=== PATIENT | female | born 2005 | race Caucasian/White ===

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

== ENCOUNTER 2024-09-28 13:43 | Emergency (ER) | payer BC, SELFPAY ==
--- NOTE | 2024-09-28 13:46 | ED_ITS ---
HPI - Ear Problem General Chief complaint: Ear Stated complaint: Ear Pain Source: patient and RN notes reviewed Mode of arrival: ambulatory Limitations: no limitations History of Present Illness HPI Narrative: Patient is a 19 year old female who presents to the [facility] with complaints of right ear pain. She states that she has had intermittent pain to the right ear for over the past month. She states that she now has muffled hearing out of the right ear. Reports prior TM perforation when she was younger requiring surgery in the right ear. States that she has noted clear drainage from the right ear. Denies recent fevers. Related Data Home Medications ?Medication ?Instructions ?Recorded ?Confirmed ?Last Taken ?Type spironolactone 50 mg tablet 50 mg PO TID 06/20/21 09/28/24 Unknown History vedolizumab 300 mg intravenous 300 mg IV ONCE 10/05/21 09/28/24 Unknown History solution (Entyvio) linaclotide 72 mcg capsule 72 mcg PO DAILY 04/09/23 09/28/24 Unknown History (Linzess) Allergies Allergy/AdvReac Type Severity Reaction Status Date / Time amoxicillin Allergy Intermediate Hives / Verified 09/28/24 13:56 Red Face adhesive tape AdvReac Intermediate BLISTERS Verified 09/28/24 13:56 Review of Systems Review of Systems: CONSTITUTIONAL: Denies fever, chills, or sweats. EYES: Denies visual changes, redness, or discharge. ENT: Reports otalgia but denies sore throat CARDIOVASCULAR: Denies chest pain, palpitations, or edema. RESPIRATORY: Denies cough or dyspnea. GASTROINTESTINAL: Denies abdominal pain, nausea, vomiting, or diarrhea. GENITOURINARY: Denies dysuria or hematuria. SKIN: Denies rash or itching. MUSCULOSKELETAL: Denies back pain, joint pain, or myalgia. NEUROLOGIC: Denies headache, numbness, or weakness. Pertinent positives per HPI. [facility] Past Medical History Medical History Ulcerative (chronic) enterocolitis IBS (irritable bowel syndrome) Asthma Ear infection Surgical History Surgical History History of removal of ovarian cyst History of tympanoplasty History of placement of ear tubes Family History Family History Other Heart disease Hypertension Social History Social History Smoking status: Never smoker Alcohol intake: never Substance use: never Do You Feel Safe in your Home?: Yes Lack of Transportation: No Lack of Food: Never True Current Housing: I Have Housing Concerned About Future Housing: No Difficulty Paying Gas/Electric Bills: No Difficulty Paying for Meds: No Currently Unemployed: No Education: High School Diploma/GED Difficulty w/ Childcare or Family Care: No Living arrangements: with family Occupation/Education: student Gender identity (if verbalized by the patient): Female Comments At the time of my signature, I reviewed and agree with the nursing past medical, surgical, social, and family history. There is no relevant family history pertinent to the patient complaint. Exam Narrative: GENERAL: This is a well-nourished, well-developed patient, in no apparent distress. HEAD: normocephalic, atraumatic. EYES: Sclera clear/white. Vision is grossly intact. EARS: External ears normal. Left TM normal without perforation. Cerumen impaction in the right. Decreased hearing on the right. NOSE: External nose normal with no obvious nasal discharge, nares without redness, no rhinorrhea. THROAT: Mucous membranes moist, posterior pharynx clear. NECK: Neck supple, non-tender without lymphadenopathy, masses or thyromegaly. CARDIOVASCULAR: Regular rate and rhythm without murmurs, gallops, or rubs. RESPIRATORY: Clear to auscultation. Breath sounds equal bilaterally. No wheezes, rales, or rhonchi. GASTROINTESTINAL: Abdomen soft, non-tender, nondistended. Bowel sounds are active. No hepato-splenomegaly, or palpable masses. No guarding. SKIN: warm, intact with no suspicious lesions or rash, good texture and turgor. NEURO: awake, alert, and oriented to person, place and time. There were no obvious focal neurologic abnormalities. Course Course Level of Care: Express Care Visit Vital Signs Vital signs: Vital Signs Temperature 98.5 F 09/28/24 13:50 Pulse Rate 70 09/28/24 13:50 Respiratory Rate 16 09/28/24 13:50 Blood Pressure 122/66 09/28/24 13:50 Pulse Oximetry 100 09/28/24 13:50 Oxygen Delivery Room Air 09/28/24 13:50 Temperature 98.5 F 09/28/24 13:50 Pulse Rate 70 09/28/24 13:50 Respiratory Rate 16 09/28/24 13:50 Blood Pressure 122/66 09/28/24 13:50 Pulse Oximetry 100 09/28/24 13:50 Oxygen Delivery Room Air 09/28/24 13:50 Reviewed Procedures Ear Wax Removal Right Ear: Ear Wax Removal Date: 09/28/24 Ear Wax Removal Time: 14:05 Results: Re-examined: cerumen removed completely TM Examination: TM(s) perforation Ear Canal Exam: atraumatic Patient Tolerated Procedure: well Complications: pain Technique: ear canal irrigated Medical Decision Making MDM Narrative Medical decision making narrative: Cerumen impaction on the right. Ear irrigated. Cerumen removed. Perforated TM noted upon exam. Patient will be treated and advised to follow-up with ENT. Take antibiotics as directed. May given ibuprofen and/or Tylenol as needed for pain and/or fever. Follow-up with ENT as soon as possible. Differential Diagnosis Differential Diagnosis: otitis media, otitis externa, cerumen impaction Vital Signs Vital Signs: Vital Signs Temperature 98.5 F 09/28/24 13:50 Pulse Rate 70 09/28/24 13:50 Respiratory Rate 16 09/28/24 13:50 Blood Pressure 122/66 09/28/24 13:50 Pulse Oximetry 100 09/28/24 13:50 Oxygen Delivery Room Air 09/28/24 13:50 Temperature 98.5 F 09/28/24 13:50 Pulse Rate 70 09/28/24 13:50 Respiratory Rate 16 09/28/24 13:50 Blood Pressure 122/66 09/28/24 13:50 Pulse Oximetry 100 09/28/24 13:50 Oxygen Delivery Room Air 09/28/24 13:50 Critical Care Time Critical Care Time Critical Care Time: No Discharge Plan Discharge Clinical Impression: Acute otitis media of right ear with perforation, Impacted cerumen of right ear Patient Disposition: Home Condition: Stable Instructions: Antibiotic Form, Ruptured Eardrum (ED), Ear Infection (ED) Additional Instructions: Take antibiotics as directed. May given ibuprofen and/or Tylenol as needed for pain and/or fever. Follow-up with ENT as soon as possible. Patient Language: Croatian Prescriptions: New cefdinir 300 mg capsule 300 mg PO Q12H 10 Days Qty: 20 0RF No Action spironolactone 50 mg tablet 50 mg PO TID Entyvio 300 mg recon soln 300 mg IV ONCE Rx Instructions: administer over 30 mins Linzess 72 mcg capsule 72 mcg PO DAILY L norgest/e.estradiol-e.estrad 0.1 mg-20 mcg (84)/10 mcg (7) tablets,dose pack,3 month 1 tablet PO DAILY Qty: 182 4RF Follow-up/Referrals: Yefri Ernandez M.D. [Physician] - PHYSICIAN,STREET CAR INSPECTOR [Primary Care Provider] - Time of Disposition: 14:10
[2024-09-28 13:50] VITALS: BP 122/66; PULSE 70; RESP 16; TEMP 36.9; O2SAT 100
[2024-09-28] MEDS: HYDROGEN PEROXIDE 3% SOLN(*SP) 473 ML BOTTLE 30 ML IRRIGATION (14:14)
== END 2024-09-28 14:16 | disposition home or self-care (01) ==
PROVIDERS: Emergency Provider Nurse Practitioner
DX: H66.91 Otitis media, unspecified, right ear (principal); H72.91 Unspecified perforation of tympanic membrane, right ear; H61.21 Impacted cerumen, right ear; J45.909 Unspecified asthma, uncomplicated
CPT/HCPCS: 69209; 99213; G0463

== ENCOUNTER 2024-10-14 07:56 | Outpatient (CLI) | payer BC, SELFPAY ==
--- OUTSIDE RECORDS SUMMARY | 2024-10-14 07:58 | XMS_ITS | Encounter Summary ---
Author Organization [facility] Address [address] [place] [address] Phone Care Team Providers Care Staff Developer Name Role Phone Jason Bliss MD Primary Care Provider [phone] Denver Beatty MD Primary Care Provider [phone] Reason for Visit * Reason Onset Date Comments QUESTION 06/04/2018 MOM CALLING WITH QUESTION ABOUT CARDIO VISIT, NOT BEE Encounter Details Date Type Department Care Team (Late st Contact Info) Description 06/04/2018 Telephone [facility] Pediatric Allergy and Pulmonology [facility] [address] [place] [address] [place] [address] Odette Bello QUESTION (MOM CALLING WITH QUESTION ABOUT CARDIO VISIT, NOT BEE) Social History Tobacco Use Types Packs/Day Years Used Date Smoking Tobacco: Never Smokeless Tobacco: Never Comments Unknown Sex and Gender Information Value Date Recorded Sex Assigned at Not on file Legal Sex 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
--- OUTSIDE RECORDS SUMMARY | 2024-10-14 07:58 | XMS_ITS | Clinical Summary ---
Author Organization [facility] [employer] Address [address] [place] [address] Care Team Providers Care Commercial Banker Name Role Phone Unavailable Primary Care Provider Unavailabl e Source Comments [facility] [employer],non-owned Affiliates and Associated Physician Practices is amultiple site organization consisting of ambulatory clinics and hospital sitesin [place], [place], [place] and [place]. This disclosure is being madepursuant to the Care Everywhere program and may not contain all information available regarding this patient. Last updated 17.[facility] [employer] Allergies Active Allergy Reactions Criticality Noted Date Comments Amoxicillin Urticaria 05/06/2014 Medications * Be aware that medications may not be up to date on this document. Alwaysverify current medications with the patient. loratadine (CLARITIN) 10 MG tablet Take 10 mg by mouth once daily. Active montelukast (SINGULAIR) 10 MG tablet Take 10 mg by mouth at bedtime. Active ibuprofen (MOTRIN) 400 MG tablet Take 1 Tab by mouth every 8 hours as needed for Pain. 50 Tab 0 05/06/2014 Active ondansetron, disintegrating, (ZOFRAN ODT) 4 MG tablet Take 1 Tab by mouth every 6 hours as needed for Nausea/Vomiti ng. 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 Gender Identity Not on file Sexual Orientation Not on file Last Filed Vital Signs Vital Sign Reading Time Taken Comments Blood Pressure 114/65 05/06/2014 3:14 PM CONCRETE POLISHER Pulse 68 05/06/2014 3:14 PM CONCRETE POLISHER Temperature 36.2 C (97.2 F) 05/06/2014 3:14 PM CONCRETE POLISHER Respiratory Rate 20 05/06/2014 3:14 PM CONCRETE POLISHER Oxygen Saturation 100% 05/06/2014 3:14 PM CONCRETE POLISHER Inhaled Oxygen Concentration - - Weight 31.5 kg (69 lb 7.1 oz) 05/06/2014 3:14 PM CONCRETE POLISHER Height - - Body Mass Index - - Plan of Treatment Health Maintenance Due Date Last Done Comments HIV SCREENING 2018 HPV VACCINE (1 - 3-dose series) 2018 CHLAMYDIA/GONORRHEA SCREENING 2019 MENINGOCOCCAL (Group B) VACC INE SHARED DECISION-MAKING (1 of 2 - Standard) 2019 HEPATITIS C SCREENING 04/22/2021 DTAP/TDAP/TD VACCINES (1 - Tdap) 2022 HEPATITIS B VACCINE (1 of 3 - 19+ 3-dose series) 2022 COVID-19 VACCINE (1 - 2023-2 5 season) 2023 DEPRESSION SCREENING 04/01/2024 INFLUENZA VACCINE (#1) 2024 ZOSTER VACCINE (1 of 2) 2053 HIB VACCINE Aged Out No longer eligi ble based on patient's age to complete this topic MENINGOCOCCAL GROUPS A/C/Y/W VACCINE Aged Out No longer eligible b ased on patient's age to complete this topic PNEUMOCOCCAL VACCINE Aged Out No long er eligible based on patient's age to complete this topic Insurance [facility]
--- OUTSIDE RECORDS SUMMARY | 2024-10-14 07:58 | XMS_ITS | Clinical Summary ---
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 Gender Identity Not on file Sexual Orientation Not on file Plan of Treatment Health Maintenance Due Date Last Done Comments Hepatitis C Virus (HCV) Screening 2003 Meningococcal B Immunization (1 of 2 - Standard) 2019 SARS-COV-2 Immunization ( season) 2023 04/05/2021, 09/12/2020, 08/20/2020 Influenza Immunization (#1) 2024 04/20/2020, 1 Respiratory Syncytial Virus (RSV) Immunization (Adult) (1 - 1-dose 75+ series) 2078 Hepatitis B Immunization Completed 004, 2003, 2003, Additional history exists Pneumococcal Immunization Combined Aged Out 07/28/2004, 01/27/2004, 2003, Additional history exists No longer eligible based on patient's age to complete this topic Measles Mumps Rubella (MMR) Immunization Discontinued 09/21/2008, 07/28/2004 Polio (IPV) Immunization Discontinued 009, 2003, 2003, Additional history exists Varicella Immunization Discontinued 09/21/2008, 2004 DTaP/Tdap/Td Immunization Discontinued 2014, 09/21/2008, 10/27/2004, Additional history exists TdaP Immunization Completed 09/21/2014 Hepatitis A Immunization Discontinued 09/26/2015, 08/31 Human Papillomavirus (HPV) Immunization Completed 09/26/2015, 09/21/2014 Meningococcal Immunization (ACWY) Completed 01/08/2021, 04/20/2020, 09/21/2014 Rotavirus Immunization Aged Out No lo nger eligible based on patient's age to complete this topic
--- OUTSIDE RECORDS SUMMARY | 2024-10-14 07:58 | XMS_ITS | CCD ---
Author Name Interface, [id number] fr[employer] Address [address] [place] [address] [employer] Address [address] [place] [address] Allergies and Adverse Reactions Medication/Group Name Reaction Severity Date adhesive 01/30/2024 amoxicillin 01/30/2024 Care Plan Date Type Value 01/30/2024 APPOINTMENT Entyvio (Acuity 2) 12/05/2023 APPOINTMENT Entyvio (Acuity 2) 12/05/2023 LABORDER CBC 12/05/2023 LABORDER ESR 12/05/2023 LABORDER CMP 12/05/2023 LABORDER CMP 12/05/2023 LABORDER CBC 01/30/2024 LABORDER GGT 01/30/2024 LABORDER Iron, TIBC, Ferr itin panel 01/30/2024 LABORDER Vitamin D, 25-hy droxy 01/30/2024 LABORDER C-reactive prote in (CRP), cardiac 01/30/2024 LABORDER CMP 01/30/2024 LABORDER CMP 01/30/2024 LABORDER CBC 01/30/2024 LABORDER CBC 01/30/2024 LABORDER HELD: ESR 03/12/2024 LABORDER CMP 03/12/2024 LABORDER CMP 03/12/2024 LABORDER CBC 03/12/2024 LABORDER CBC 03/12/2024 LABORDER ESR Reason for Visit Entyvio (Acuity 2) Encounters Date Name 01/30/2024 Inflammatory bowel d isease (disorder) Diagnostic Results Date Type Test Units Lower Limit Upper Limit Result Flag Comments Status Ordered By Specimen Source Lab Address 01/29 Clini georgina PDF Repor t [id number] 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 FINAL [facility], [address] [address] [place] [address] Terese- andi Rankin Laz VILLATORO 01/29 C-jane ctive prote in panel C-jane ctive prote in, quant , mg/L mg/L <3.0 Chelsea l FINAL [facility], [address] [address] [place] [address] Terese- andi Rankin Laz VILLATORO 01/29 Vitam in D, 25-OH , D2 ng/mL <1.0 This test was developed and its analytica l performan cecharact eristics have been determine d by [employer]. It has not been cleared or approved by theA. This assay has been validated pursuant to the [facility] and is used for clinical purposes. Your request to have a duplicate copy faxed has been acknowled ged. Queued to: [phone] [employer] [employer], [facility], [address] [place] [address] Mushtaq Flores i PhD, [facility] 01/29 Vitam in D, 25-OH , D3 ng/mL 38.0 This test was developed and its analytica l performan cecharact eristics have been determine d by [employer]. It has not been cleared or approved by theA. This assay has been validated pursuant to the [facility] and is used for clinical purposes. [employer] [address] [facility], [address] [place] [address] Mushtaq Flores i PhD, [facility] 01/29 Vitam in D, 25-hy droxy ng/mL 38.0 This test was developed and its analytica l performan cecharact eristics have been determine d by [employer]. It has not been cleared or approved by the U.S. Food andDrug Administr ation. This assay has been validated pursuantt o the CLIA regulatio ns and is used for clinical purposes. Vitamin D, 25-Hydrox y reports concentra tions of two commonfor ms, 25-OHD2 and 25-OHD3. 25-OHD3 indicates bothendog enous productio n and supplemen tation. 25-OHD2 is anindicat or of exogenous sources, such as diet orsupplem entation. Therapy is based on measureme nt of Btazg25-M HD, with levels <20 ng/mL indicativ e of Vitamin Ddeficien cy, while levels between 20 ng/mL and 30 ng/mLsugg est insuffici ency. Optimal levels are >=30 ng/mL.Vit venegas D, 25-Hydrox y reports concentra tions of twocommon forms, 25-OHD2 and 25-OHD3. 25-OHD3 indicates both endogenou s productio n and supplemen tation.25 -OHD2 is an indicator of exogenous sources, suchas diet or supplemen tation. Therapy is based onmeasure ment of Total 25-OHD, with levels <20 ng/mLindi cative of Vitamin D deficienc y, while levelsbet ween 20 ng/mL and 30 ng/mL suggest insuffici ency.Opti mal levels are >or = 30 ng/mL. FINAL Kelsi th[place] [facility] [employer] [employer] [address] [place] [address], [address] [place] [address] Mushtaq Flores i PhD, DAB 01/29 GGT panel GGT U/L 3.0 40.0 7 Chelsea l FINAL [facility] [facility], [facility] [place] [address] Terese-Lie u T Laz VILLATORO 01/29 CMP ALT/S GPT U/L 6.0 29.0 12 Chelsea l [facility]AL [facility] [facility], [facility] [address] Terese-Lie u T Laz VILLATORO 01/29 CMP A/G ratio (calc) 1.0 2.5 2.1 Chelsea l FINAL [facility], Brandon [facility] [place] 52 Terese-Lie u T Vo 01/29 CMP Gluco se mg/dL 65.0 139.0 78 Chelsea l Non-fasti ng reference interval FINAL [facility] [facility], [facility] [place] 52 Terese-Lie u T Vo 01/29 CMP Globu abrahan g/dL(c alc) 1.9 3.7 2.1 Chelsea l FINAL [facility] [facility], [facility] [place] 52 Terese-Lie u T Vo 01/29 CMP Total prote in g/dL 6.1 8.1 6.5 Chelsea l FINAL [facility] [facility], [facility] [place] 52 Terese-Lie u T Vo 01/29 CMP AST/S GOT U/L 10.0 30.0 16 Chelsea l FINAL [facility] [facility], [facility] [place] 52 Terese-Lie u T Vo 01/29 CMP Bilir ubin, total mg/dL 0.2 1.2 0.4 Chelsea l FINAL [facility] [facility], [facility] [place] 52 Terese-Lie u T Vo 01/29 CMP Sodiu m mmol/L 135.0 146.0 138 Chelsea l FINAL [facility] [facility], [facility] [place] 52 Terese-Lie u T Vo 01/29 CMP Alkal ine phosp hatas e U/L 31.0 125.0 37 Chelsea l FINAL [facility] [facility], [facility] [place] 52 Terese-Lie u T Vo 01/29 CMP Calci um mg/dL 8.6 10.2 9.4 Chelsea l FINAL [facility] [facility], [facility] [place] 52 Terese-Lie u T Vo 01/29 CMP CO2 mmol/L 20.0 32.0 25 Chelsea l FINAL [facility] [facility], [facility] [place] 52 Terese-Lie u T Vo 01/29 CMP EGFR mL/min /1.73m 2 90 Chelsea l FINAL [facility] [facility], [facility] [place] 52 Terese-Lie u T Vo 01/29 CMP Chlor marcia mmol/L 98.0 110.0 104 Chelsea l FINAL [facility] [facility], [facility] [place] 52 Terese-Lie u T Vo 01/29 CMP BUN mg/dL 7.0 25.0 12 Chelsea l [facility]AL [facility] [facility], [facility] [place] 52 Terese-Lie u T Vo 01/29 CMP Creat inine mg/dL 0.5 0.96 0.93 Chelsea l FINAL [facility] [facility], [facility] [place] 52 Terese-Lie u T Vo 01/29 CMP Album in g/dL 3.6 5.1 4.4 Chelsea l FINAL [facility] [facility], [facility] [place] 52 Terese-Lie u T Vo 01/29 CMP BUN/C reati nine ratio (calc) 6.0 22.0 SEE NOTE: Not Reported: BUN and Creatinin e are within reference range. FINAL [facility] [facility], [facility] [place] 52 Terese-Lie u T Vo 01/29 CMP Potas sium mmol/L 3.5 5.3 4.2 Chelsea l FINAL [facility] [facility], [facility] [place] 52 Terese-Lie u T Vo 01/29 Iron, TIBC, Irvin tin panel Irvin tin ng/mL 16.0 154.0 10 Low FINAL [facility] [facility], [facility] 52 - u T Vo 01/29 Iron, TIBC, Irvin tin panel Iron, % satur ation %(calc ) 16.0 45.0 34 Chelsea l FINAL [facility] [facility], [facility] 52 u T Laz VILLATORO 01/29 Iron, TIBC, Irvin tin panel Iron mcg/dL 40.0 190.0 119 Chelsea l FINAL [facility] [facility], [facility] 52 u T Vo 01/29 Iron, TIBC, Irvin tin panel TIBC mcg/dL (calc) 250.0 450.0 345 Chelsea l FINAL [facility] [facility], [facility] 52 u T Vo 01/29 CBC w/ auto diff MCV fL 80.0 100.0 93.9 Chelsea l FINAL [facility], [facility] 52 u T Vo 01/29 CBC w/ auto diff Neutr ophil band, Ab, cells /uL cells/ uL 0.0 750.0 DNR Chelsea l FINAL [facility] [facility], [facility] 52 u T Laz VILLATORO 01/29 CBC w/ auto diff MO % % 6.4 Chelsea l FINAL [facility] [facility], [facility] 52 u T Vo 01/29 CBC w/ auto diff Metam yeloc yte % % DNR Chelsea l [facility]AL [facility] [facility], [facility] 52 - u T Vo 01/29 CBC w/ auto diff Metam yeloc ytes, absol [place]or[place] cells/ uL DNR Chelsea l FINAL [facility], [address] [facility] [place] [address] Terese-Lie u T Vo 01/29 CBC w/ auto diff ELIANE #, cells /uL cells/ uL 1500.0 7800.0 1899 Chelsea l FINAL [facility] [facility], [facility] [place] [address] Terese-Lie u T Vo 01/29 CBC w/ auto diff EO % % 2.4 Chelsea l FINAL [facility] [facility], [facility] [address] Terese-Lie u T Vo 01/29 CBC w/ auto diff RBC Millio n/uL 3.8 5.1 4.29 Chelsea l FINAL [facility] [facility], [facility] [place] [address] Terese-Lie u T Vo 01/29 CBC w/ auto diff MPV fL 7.5 12.5 9.7 Chelsea l FINAL [facility], [facility] [address] Terese-Lie u T Vo 01/29 CBC w/ auto diff BA % % 0.7 Chelsea l FINAL [facility] [facility], [facility] [address] Terese-Lie u T Vo 01/29 CBC w/ auto diff Promy elocy te % % DNR Chelsea l FINAL [facility] [facility], [place] [phone] 52 Terese-Lie u T Vo 01/29 CBC w/ auto diff BA #, cells /uL cells/ uL 0.0 200.0 32 Chelsea l FINAL [facility] [facility], [facility] [address] Terese-Lie u T Vo 01/29 CBC w/ auto diff Band, % % DNR Chelsea l [facility]AL [facility] [facility], [place] [phone] 52 Terese-Lie u T Vo 01/29 CBC w/ auto diff HGB g/dL 11.7 15.5 12.8 Chelsea l FINAL [facility] [facility], [place] 52 01/29 CBC w/ auto diff Myelo cyte % % DNR Chelsea l [facility]AL [facility] [facility], [facility] 01/29 CBC w/ auto diff NRBC, absol [place], cells /uL cells/ uL DNR Chelsea l FINAL [facility] [facility], [facility] [place] 52 01/29 CBC w/ auto diff MCHC g/dL 32.0 36.0 31.8 Low For adults, a slight decrease in the calculate d MCHCvalue (in the range of 30 to 32 g/dL) is most likelynot clinicall y significa nt; however, it should beinterpr eted with caution in correlati on with otherred cell parameter s and the patient's clinicalc ondition. FINAL [facility] [facility], [facility] 52 01/29 CBC w/ auto diff HCT % 35.0 45.0 40.3 Chelsea l FINAL [facility] [facility], [facility] [place] 52 01/29 CBC w/ auto diff React john lymph ocyte , % % 0.0 10.0 DNR Chelsea l FINAL [facility] [facility], [facility] [place] 52 01/29 CBC w/ auto diff Blast s, absol [place] cells/ uL DNR Chelsea l FINAL [facility] [facility], [facility] [place] 52 Laz VILLATORO 01/29 CBC w/ auto diff Myelo cytes , absol noor[place] cells/ uL DNR Chelsea l [facility]AL [facility], [address] [facility] [place] [address] Laz VILLATORO 01/29 CBC w/ auto diff Promy elocy te, absol [place], cells /uL cells/ uL DNR Chelsea l [facility]AL [facility], [address] [facility] 52 Laz VILLATORO 01/29 CBC w/ auto diff WBC Thousa nd/uL 3.8 10.8 4.5 Chelsea l FINAL [facility] [facility], [facility] 52 Laz VILLATORO 01/29 CBC w/ auto diff PLT Thousa nd/uL 140.0 400.0 297 Chelsea l [facility]AL [facility], [address] [facility] 52 Laz VILLATORO 01/29 CBC w/ auto diff CBC Comme nts DNR Chelsea l FINAL [facility] [facility], [facility] [address] Laz VILLATORO 01/29 CBC w/ auto diff LY #, cells /uL cells/ uL 850.0 3900.0 2174 Chelsea l FINAL [facility] [facility], [facility] [address] Laz VILLATORO 01/29 CBC w/ auto diff Blast s % % DNR Chelsea l FINAL [facility] [facility], [facility] [address] Laz VILLATORO 01/29 CBC w/ auto diff RDW % 11.0 15.0 12.1 Chelsea l FINAL [facility], [address] [facility] [address] 52 Laz VILLATORO 01/29 CBC w/ auto diff MO #, cells /uL cells/ uL 200.0 950.0 288 Chelsea l FINAL [facility], [address] [place] [phone] [facility] Laz VILLATORO 01/29 CBC w/ auto diff EO #, cells /uL cells/ uL 15.0 500.0 108 Chelsea l FINAL [facility], [address] [place] [phone] [facility] Laz VILLATORO 01/29 CBC w/ auto diff LY % % 48.3 Chelsea l [facility]AL [facility], [address] [facility] [address] [facility] Laz VILLATORO 01/29 CBC w/ auto diff MCH pg 27.0 33.0 29.8 Chelsea l [facility]AL [facility], [address] [facility] [address] [facility] Laz VILLATORO 01/29 CBC w/ auto diff NRBC % /100WB C DNR Chelsea l [facility]AL [facility], [address] [facility] [address] [facility] Laz VILLATORO 01/29 CBC w/ auto diff Eliane % % 42.2 Chelsea l [facility]AL [facility], [address] [place] [phone] [facility] Laz VILLATORO Medications Administered Date Name Route Dose Frequency Instructions Start Date End Date Status 2023 vedolizumab 300 MG Injection [Entyvio] intravenously 300.0 mg every 8 weeks Administer over 30 mins. Reconstitute ENTYVIO vial containing lyophilized powder with 4.8 mL of Sterile Water for injection at room temperature (20 to 25 C [68 to 77 F]), using a syringe with a 21- to 25- gauge needle. Reconstitute ENTYVIO lyophilized powder with Sterile Water for Injection and dilute in 250 mL of sterile 0.9% Sodium Chloride Injection or sterile Lactated Ringer s Injection prior to administratio n. 01/29 inactive 2023 acetaminophen 500 MG Oral Tablet [Tylenol] orally 1.0 tablet once 01/29 inactive 2023 cetirizine hydrochloride 10 MG Oral Tablet [Zyrtec] orally 1.0 tablet daily 01/29 inactive 2023 vedolizumab 300 MG Injection [Entyvio] intravenously 300.0 mg every 8 weeks Administer over 30 mins. Reconstitute ENTYVIO vial containing lyophilized powder with 4.8 mL of Sterile Water for injection at room temperature (20 to 25 C [68 to 77 F]), using a syringe with a 21- to 25- gauge needle. Reconstitute ENTYVIO lyophilized powder with Sterile Water for Injection and dilute in 250 mL of sterile 0.9% Sodium Chloride Injection or sterile Lactated Ringer s Injection prior to administratio n. 12/04 inactive 2023 cetirizine hydrochloride 10 MG Oral Tablet [Zyrtec] orally 1.0 tablet daily 12/04 inactive 2023 acetaminophen 500 MG Oral Tablet [Tylenol] orally 1.0 tablet once 12/04 inactive Medications Date Name Route Dose Frequency Instructions Start Date End Date Status Budesonide Oral ER Cap po daily 1.0 capsule, delayed, extend.r elease stopped Spironolactone Oral po 1.0 tablet daily active L norgest/E. Estradiol-E. Estrad Oral 0.15 mg-30 mcg (84)/10 mcg (7) po 1.0 tablets, dose pack,3 month daily active Budesonide Rectal rectal 1.0 mg/actua tion BID stopped Albuterol HFA Inhaler 90 mcg/actuation inhaled 2.0 HFA aerosol inhaler PRN active Linaclotide Oral po 1.0 capsule daily active 03/12 Oxygen inhaled 2.0 L Use as Directed Titrate to keep SPO2 >92% 2023 active 03/12 acetaminophen 325 MG Oral Capsule orally 650.0 mg once 2023 active 03/12 diphenhydramine hydrochloride 0.5 MG/ML Injectable Solution intravenously 50.0 mg once 2023 active 03/12 cetirizine hydrochloride 10 MG Oral Tablet [Zyrtec] orally 1.0 tablet daily 2023 active 03/12 methylprednisol one 2000 MG Injection intravenously 125.0 mg once 2023 active 03/12 acetaminophen 500 MG Oral Tablet [Tylenol] orally 1.0 tablet once 2023 active 03/12 epinephrine hydrochloride intramuscularly 0.3 mg once 2023 active 03/12 vedolizumab 300 MG Injection [Entyvio] intravenously 300.0 mg every 8 weeks Administer over 30 mins. Reconstitute ENTYVIO vial containing lyophilized powder with 4.8 mL of Sterile Water for injection at room temperature (20 to 25 C [68 to 77 F]), using a syringe with a 21- to 25- gauge needle. Reconstitute ENTYVIO lyophilized powder with Sterile Water for Injection and dilute in 250 mL of sterile 0.9% Sodium Chloride Injection or sterile Lactated Ringer s Injection prior to administratio n. 2023 active 03/12 hydrocortisone 100 MG Injection intravenously 100.0 mg once 2023 active 03/12 ondansetron hydrochloride intravenously 4.0 mg once 2023 active 01/29 diphenhydramine hydrochloride 0.5 MG/ML Injectable Solution intravenously 50.0 mg once 2023 active 01/29 hydrocortisone 100 MG Injection intravenously 100.0 mg once 2023 active 01/29 methylprednisol one 2000 MG Injection intravenously 125.0 mg once 2023 active 01/29 epinephrine hydrochloride intramuscularly 0.3 mg once 2023 active 01/29 acetaminophen 325 MG Oral Capsule orally 650.0 mg once 2023 active 01/29 ondansetron hydrochloride intravenously 4.0 mg once 2023 active 01/29 Oxygen inhaled 2.0 L Use as Directed Titrate to keep SPO2 >92% 2023 active 12/04 hydrocortisone 100 MG Injection intravenously 100.0 mg once 2023 active 12/04 diphenhydramine hydrochloride 0.5 MG/ML Injectable Solution intravenously 50.0 mg once 2023 active 12/04 acetaminophen 325 MG Oral Capsule orally 650.0 mg once 2023 active 12/04 Oxygen inhaled 2.0 L Use as Directed Titrate to keep SPO2 >92% 2023 active 12/04 epinephrine hydrochloride intramuscularly 0.3 mg once 2023 active 12/04 methylprednisol one 2000 MG Injection intravenously 125.0 mg once 2023 active 12/04 ondansetron hydrochloride intravenously 4.0 mg once 2023 active Problems Diagnosis Status Date of Diagnosis Resolution Date Inflammatory bowel disease (disorder) Active Social History Date Name Value Sex Female Vital Signs Date Type Value 12/05/2023 Intravascular Systolic 116 12/05/2023 Intravascular Diastolic 73 12/05/2023 Oxygen Saturation 97.00 12/05/2023 Respiratory Rate 16.00 12/05/2023 Heart Beat 79.00 12/05/2023 Body Temperature 98.80 12/05/2023 Pain Scale 0.00 12/05/2023 Weight 55.80 01/30/2024 Intravascular Systolic 102 01/30/2024 Intravascular Diastolic 58 01/30/2024 Oxygen Saturation 99.00 01/30/2024 Respiratory Rate 16.00 01/30/2024 Heart Beat 97.00 01/30/2024 Body Temperature 98.70 01/30/2024 Pain Scale 0.00 01/30/2024 Weight 56.80
--- OUTSIDE RECORDS SUMMARY | 2024-10-14 07:58 | XMS_ITS | CCD ---
Author Name Interface, [id number] Address [address] [employer] Address [address] [place] [address] Allergies and Adverse Reactions Care Plan Reason for Visit Encounters Diagnostic Results Medications Administered Medications Problems Social History Vital Signs
--- OUTSIDE RECORDS SUMMARY | 2024-10-14 07:58 | XMS_ITS | Encounter Summary ---
Author Organization [facility] Healthcare Address [address] [place] [address] Care Team Providers Care Social Services Technician Name Role Phone Jason Bliss MD Primary Care Provider [phone] Denver Beatty MD Primary Care Provider [phone] Encounter Details Date Type Department Care Team (Late st Contact Info) Description 07/21/2021 Telephone [facility] MRI Department [address] [place] [address] Bessie Cain RT Social History Tobacco Use Types Packs/Day Years Used Date Smoking Tobacco: Never Smokeless Tobacco: Never Comments Unknown Sex and Gender Information Value Date Recorded Sex Assigned at Not on file 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
--- OUTSIDE RECORDS SUMMARY | 2024-10-14 07:58 | XMS_ITS | Encounter Summary ---
Author Organization [facility] Address [address] [place] [address] Phone Care Team Providers Care Cryptologist Name Role Phone Denver Beatty MD Primary Care Provider [phone] Encounter Details Date Type Department Care Team (Late st Contact Info) Description 08/18/2024 Results Follow-Up [facility] [address] [facility] [address] [place] [address] [place] [address] Hodan Richardson RN Thyroid Function [place], Vitamin D 25 hydroxy, Folate, Additional followed-up results: 8 Social History Tobacco Use Types Packs/Day Years Used Date Smoking Tobacco: Never Smokeless Tobacco: Never AUDIT-C Answer Date Recorded Q1: How often do you have a drink containing alc ohol? Monthly or less 08/13/2024 Q2: How many drinks containi ng alcohol do you have on a typical day when you are drinking? 1 or 2 08/13/2024 Q3: How often do you have si x or more drinks on one occasion? Never 08/13/2024 PHQ-2 Answer Date Recorded PHQ-2 Total Score (If total score is 3 or more points, staff should administer the PHQ-9) 0 10/08/2023 PHQ-9 Answer Date Recorded PHQ-9 Total Score 0 10/08/2023 Personal Safety Answer Date Recorded Have you ever been in or are you currently in a harmful physical or emotional relationship or is someone making you feel afraid or unsafe? 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
--- OUTSIDE RECORDS SUMMARY | 2024-10-14 07:58 | XMS_ITS | Encounter Summary ---
Author Organization [facility] Healthcare Address [address] [place] [address] Care Team Providers Care Data Collection Specialist Name Role Phone Jason Bliss MD Primary Care Provider [phone] Denver Beatty MD Primary Care Provider [phone] Encounter Details Date Type Department Care Team (Late st Contact Info) Description 07/21/2021 Telephone [facility] MRI Department [address] [place] [address] Bessie Cain RT Social History Tobacco Use Types Packs/Day Years Used Date Smoking Tobacco: Never Smokeless Tobacco: Never Comments Unknown Sex and Gender Information Value Date Recorded Sex Assigned at Not on file 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
--- OUTSIDE RECORDS SUMMARY | 2024-10-14 07:58 | XMS_ITS | Clinical Summary ---
Author Organization [facility] Address [address] [place] [address] Care Team Providers Care Irrigation Foreman Name Role Phone Denver Beatty MD Primary Care Provider Allergies Active Allergy Reactions Criticality Noted Date Comments Adhesive Blisters High 11/03/2020 Adhesive tape.Does well with paper tape Amoxicillin Hives Medium 12/18/2016 Gluten Other (See comments) 08/13/2024 Celiac disease Medications PROAIR HFA 90 mcg/actuation inhaler Inhale 2 puffs every 4 (four) hours as needed for wheezing or shortness of breath 1 8 Active EPINEPHrine 0.1 mg/0.1 mL auto-injector Inject 0.3 mg into the muscle as instructed as needed (anaphylaxis) 3 Active linaCLOtide (LINZESS) 145 mcg capsule Take 1 capsule (145 mcg total) by mouth daily 30 capsule 3 4 Active Additional Information Patient not taking.Reported on 08/13/2024 acetaminophen (Tylenol Extra Strength) 500 mg tablet Take 1 tablet (500 mg total) by mouth every 4 (four) hours as needed 4 Active cetirizine (ZyrTEC) 10 mg tablet Take 1 tablet (10 mg total) by mouth daily 4 Active vedolizumab 108 mg/0.68 mL pen injector Inject 108 mg under the skin every 14 (fourteen) days 1.36 mL 6 5 Active Active Problems Problem Noted Date Diagnosed Date Celiac disease/sprue 10/08/2023 Abdominal pain 08/22/2023 Assessment & Plan (08/23/2023 3:08 AM CDT): Karla is a 18yo F w a hx of inflammatory bowel disease who presents with severe abdominal pain since her coloscopy and endoscopy yesterday. Given her recent procedure, there is concern for perforation, though XR and CT in the emergency department were normal. Pain may be in the setting of an IBD plain, however, Karla notes that this pain is much different than her typical IBD pain and her stools have been normal. Pain may be post-procedural, however this extent of pain is not consistent with post-procedure discomfort. Should also consider ectopic (though urine was negative) or ovarian torsion. Torsion is less likely given that her pain is bilateral, however, she notes that this pain is worse than any other pain she has had before, it is worse on the left, and she has a history of ovarian cyst with excision in 2017, so it should be highly considered. CT abd pelvis did note cysts as well. - US pelvis w Doppler complete - mIVF - scheduled Tylenol q6hrs - benadryl PRN - Robaxin PRN - ok for x1 toradol per GI - serial abdominal exams - GI consulted, appreciate further recs Chronic constipation 04/26/2023 Irritable bowel syndrome 04/18/2023 Severe ulcerative colitis 08/30/2021 Duodenitis 08/30/2021 Inflammatory bowel disease 08/22/2021 Abdominal pain, lower 10/17/2020 Overview (10/17/2020): Added automatically from request for surgery [id number] Hematochezia 10/17/2020 Overview (10/17/2020): Added automatically from request for surgery [id number] Dyspnea on exertion 01/16/2019 Assessment & Plan (01/16/2019 11:29 AM CDT): The precise etiology of Karla's exercise symptoms remains unclear. Her testing has not been reflective of asthma, but she reports improvement of symptoms with albuterol. Her history today, along with some of the findings on her exercise test, are more indicative of vocal cord dysfunction. - Discussed diagnosis of VCD at length with Karla and Dad, including natural history and treatment. - Placed order for ST for VCD treatment. We are happy to send this order to the ST of family's choosing, if they want to be seen outside of our network. - Karla can continue to use albuterol with exercise for now, as she finds it helpful. Would recommend 4 puffs with spacer prior to exercise, and no more than an additional 4-6 puffs over the course of a game/practice. - We also recommended she try restarting the Singulair and taking it regularly to assess efficacy. Studies have indicated that it may be a more effective controller or preventative medication for EIB than inhaled steroids. Syncope associated with exercise 06/10/2018 Overview (06/10/2018): 1. Normal baseline ECG on 06/06/18 2. Normal baseline echocardiogram on 06/06/18 3. Normal exercise stress test on 06/10/18 4. Normal family and personal history obtained through mother. Asthmatic bronchitis without complication Encounters Date Type Department Care Team Description 08/19/2024 9:15 AM CDT Telemedicine [facility] Gastroenterology [address] [place] [address] Medicine [facility] [place] [address] [place] [address] Fanny Hernandez, HARSH Celiac disease/sprue 08/18/2024 Results Follow-Up [facility]astroenterology [address] [place] [address] [place] [address] [place] [address] Hodan Richardson, ANAND Thyroid Function [place], Vitamin D 25 hydroxy, Folate, Additional followed-up results: 8 08/13/2024 11:15 AM CDT Lab [facility] [address] [place] [phone] Celiac disease/sprue 08/13/2024 9:30 AM CDT Office Visit [facility] Gastroenterology [address] [place] [address] 12th [place] [address] [place] [address] Branden Fox MD Celiac disease/sprue (Primary Dx); Severe ulcerative colitis (HCC); Chronic constipation from Last 3 Months Immunizations Immunization Administration Dates Next Due DTaP 10/27/2004 DTaP / Hep B / IPV 2003,2003, 004 DTaP / IPV 09/21/2008 HPV9 09/26/2015,09/21/2014 Hep A, Pediatric 09/26/2015,09/21/2014 Hep B, Adolescent or Pediatric 04/09/2023,2003 Hib (PRP-OMP) 10/27/2004, 4,2003,07/07 Influenza, Quadrivalent, Spl it, Intramuscular 06/01/2021,04/20/2020 Influenza, Quadrivalent, Spl it, Preservative Free, Intramuscular 03/13/2022,01/21/2014 MMR 09/21/2008,07/28/2004 Meningococcal Conjugate (Menveo) 04/20/2020 Meningococcal MCV4P (Menactra) 01/08/2021,2014 Pneumococcal Conjugate 7-Valent 07/29/19 05,01/27/2004,2003,07/07 Pneumococcal Conjugate PCV 13 09/11/2022 Pneumococcal Conjugate Pcv20 04/09/2023 Tdap 09/21/2014 Varicella 09/21/2008,05/01/2004 Surgical History Surgery Date Site/Laterality Comments DE LAPS ABD PRTM&OMENTUM DX W/WO SPEC BR/WA SPX MYRINGOTOMY W/ TUBES EAR SURGERY Medical History Medical History Date Comments Allergic rhinitis Asthma Dyspnea on exertion 01/16/2019 Syncope associated with exercise 06/10/2018 1. Normal baseline ECG on 06/06/18 2. Normal baseline echocardiogram on 06/06/18 3. Normal exercise stress test on 06/10/18 4. Normal family and personal history obtained through mother. Covid-19 pfizer 08/20/20, 09/12/20 Chronic constipation 04/26/2023 Severe ulcerative colitis (HCC) 08/30/2021 Celiac disease Family History Medical History Relation Name Comments Asthma Brother No Known Problems Father Anxiety disorder Mother Colon polyps Mother Endometriosis Mother Hypertension Mother Migraines Mother Sarcoidosis Mother Sarcoidosis Mother's Sister Breast cancer Other 1 Family history of malignant neoplasm of breast - (Added by TW Conv) Heart disease Other 2 Family history of cardiac disorder - (Added by TW Conv) Stroke Other 3 Family history of cerebrovascular accident (CVA) - (Added by TW Conv) Melanoma Other 4 Family history of malignant melanoma - (Added by TW Conv) No Known Problems Sister Celiac disease Neg Hx Colon cancer Neg Hx Diabetes type I Neg Hx Inflammatory bowel disease Neg Hx Stomach cancer Neg Hx Thyroid disease Neg Hx Relation Name Status Comments Brother Alive Father Alive Mother Alive Mother's Sister Other 1 Other 2 Other 3 Other 4 Sister Alive Social History Tobacco Use Types Packs/Day Years [...] on file Legal Sex Female 11:33 PM [employer] Gender Identity Not on file Sexual Orientation Not on file History Length Weight Head Circum Date/Time Gestation Age D/C Weight APGARs Delivery Method Feeding 6 lb 3 oz (2.807 kg) 2005 37 wks Obstetrics History Last Filed Vital Signs Vital Sign Reading Time Taken Comments Blood Pressure 122/80 08/13/2024 9:09 AM CDT Pulse 90 08/13/2024 9:09 AM CDT Temperature 36.8 C (98.3 F) 08/13/2024 9:09 AM CDT Respiratory Rate 18 09/24/2023 1:06 PM CDT Oxygen Saturation 95% 08/13/2024 9:09 AM CDT Inhaled Oxygen Concentration - - Weight 56.7 kg (125 lb) 08/13/2024 9:09 AM CDT Height 167.6 cm (5' 6) 08/13/2024 9:09 AM CDT Body Mass Index 20.18 08/13/2024 9:09 AM CDT Plan of Treatment Health Maintenance Due Date Last Done Comments Cervical Cancer Screening 2003 Chlamydia and Gonorrhea (GC/ CT) Screening 2003 Hepatitis C Screening 2003 Meningococcal B Vaccine (1 o f 2 - Standard) 2019 Regular Well Visit/Exam 18-64 2021 Covid-19 Vaccine (4 - 2023-2 5 season) 2023 04/05/2021, 09/12/2020, 08/20/2020 DTaP/Tdap/Td Vaccine (7 - Td or Tdap) 09/21/2024 09/21/2014, 09/21/2008, 10/27/2004, Additional history exists Depression Screening 10/07/2024 10/08/2023, 04/09/2023, 09/11/2022 Influenza Vaccine (#1) 2024 , 06/01/2021, 04/20/2020, Additional history exists Varicella Vaccines Completed 09/21/2008, 05/01/2004 HPV Vaccines Completed 09/26/2015, 09/21/2014 Meningococcal Vaccine Completed 01/08/2021 , 04/20/2020, 09/21/2014 Hepatitis B Screening Completed 04/09/2023 , 2003, 2003, Additional history exists Pneumococcal vaccine <65 Completed 024, 09/11/2022, 07/28/2004, Additional history exists Procedures Procedure Name Priority Date/Time Associated Diagnosis Comments EGFR Routine 08/13/2024 10:33 AM CDT Celiac disease/sprue DIFFERENTIAL AUTO Routine 08/13/2024 10: 33 AM CDT Celiac disease/sprue TISSUE TRANSGLUTAMINASE, IGA Routine 08/13/2024 10:33 AM CDT Celiac disease/sprue GLIADIN ANTIBODY, IGG Routine 08/13/2024 10:33 AM CDT Celiac disease/sprue COMPREHENSIVE METABOLIC PANEL Routine 08/13/2024 10:33 AM CDT Celiac disease/sprue CBC WITH AUTO DIFFERENTIAL Routine 08/13/2024 10:33 AM CDT Celiac disease/sprue VITAMIN B12 Routine 08/13/2024 10:33 AM CDT Celiac disease/sprue FERRITIN Routine 08/13/2024 10:33 AM CDT Celiac disease/sprue FOLATE Routine 08/13/2024 10:33 AM CDT Celiac disease/sprue VITAMIN D 25 HYDROXY Routine 08/13/2024 10:33 AM CDT Celiac disease/sprue THYROID FUNCTION CASCADE Routine 08/13/2024 10:33 AM CDT Celiac disease/sprue from Last 3 Months Results * eGFR (08/13/2024 10:33 AM CDT) eGFR >90 >=60 mL/min/1. 73 m2 Comment: Interpretive Data Reference Interval Normal >/= 90 mL/min/1.73m2 Mildly decreased* 60 - 89 mL/min/1.73m2 Mildly to moderately decreased 45 - 59 mL/min/1.73m2 Moderately to severely decreased 30 - 44 mL/min/1.73m2 Severely decreased 15 - 29 mL/min/1.73m2 Kidney Failure < 15 mL/min/1.73m2 *Relative to young adult level Estimated glomerular filtration rate is determined by the 2020 CKD-EPI equation recommended by the National Kidney Foundation (A Unifying Approach to GFR Estimation: Recommendations of the NKF-ASK Task Force on Reassessing the Inclusion of Race in Diagnosing Kidney Disease, JASN 2020). The CKD-EPI equation should not be used for patients with unstable renal function and has not been validated in children and those over 70. Current interpretive data was last reviewed 2021. Blood 08/13/2024 10:3 3 AM CDT 08/13/2024 11:03 AM CDT us Branden Fox MD LAB BLOOD ORDERABLES Final Resu lt [facility] Department [place] [address] * Differential, auto (08/13/2024 10:33 AM CDT) Neutrophil abs 3.37 1.50 - 6.50 K/cumm Imm gran abs 0.02 0.00 - 0.10 K/cumm [facility] Lymphocyte abs 2.30 0.80 - 3.30 K/cumm [facility] Monocyte abs 0.49 0.20 - 0.80 K/cumm [facility] Eosinophil abs 0.31 0.00 - 0.50 K/cumm [facility] Basophil abs 0.04 0.00 - 0.10 K/cumm [facility] Neutrophil pct 51.7 % [facility] Comment: Interpretive Data Percent cell count reference ranges are not reported, since discordance with absolute values may lead to misinterpretation of CBC data. Current Interpretive Data was last revised on 2017. Imm gran pct 0.3 % [facility] Comment: Interpretive Data Percent cell count reference ranges are not reported, since discordance with absolute values may lead to misinterpretation of CBC data. Current Interpretive Data was last revised on 2017. Lymphocyte pct 35.2 % [facility] Comment: Interpretive Data Percent cell count reference ranges are not reported, since discordance with absolute values may lead to misinterpretation of CBC data. Current Interpretive Data was last revised on 2017. Monocyte pct 7.5 % [facility] Comment: Interpretive Data Percent cell count reference ranges are not reported, since discordance with absolute values may lead to misinterpretation of CBC data. Current Interpretive Data was last revised on 2017. Eosinophil pct 4.7 % [facility] Comment: Interpretive Data Percent cell count reference ranges are not reported, since discordance with absolute values may lead to misinterpretation of CBC data. Current Interpretive Data was last revised on 2017. Basophil pct 0.6 % [facility] Comment: Interpretive Data Percent cell count reference ranges are not reported, since discordance with absolute values may lead to misinterpretation of CBC data. Current Interpretive Data was last revised on 2017. Blood 08/13/2024 10:3 3 AM CDT 08/13/2024 10:55 AM CDT Branden Fox MD LAB BLOOD ORDERABLES Final Resu lt Performing Organization Address City/[facility]/ZIP Co de Phone Number [facility] Department [place] [address] * Thyroid Function [place] (08/13/2024 10:33 AM CDT) Pathologist [facility] TSH 1.83 0.30 - 4.20 mcIUnit/mL Blood 08/13/2024 10:3 3 AM CDT 08/13/2024 10:55 AM CDT Branden Fox MD LAB BLOOD ORDERABLES Final Resu lt Performing Organization Address City/[facility]/ZIP Co de Phone Number [facility] Department [place] [address] * CBC with auto differential (08/13/2024 10:33 AM CDT) Pathologist [facility] WBC 6.53 3.80 - 9.90 K/cumm Hgb 12.8 11.9 - 15.5 g/dL [facility] Hct 37.4 35.6 - 45.5 % [facility] Plt 268 150 - 400 K/cumm [facility] MPV 9.2 9.1 - 12.3 fL [facility] RBC 4.30 3.90 - 5.20 M/cumm [facility] MCV 87.0 81.3 - 96.4 fL [facility] MCH 29.8 27.1 - 33.3 pg [facility] MCHC 34.2 32.3 - 35.7 g/dL [facility] RDW CV 12.0 11.1 - 14.9 % [facility] RDW SD 38.5 35.7 - 48.1 fL [facility] NRBC abs 0.00 0.00 - 0.01 K/cumm [facility] Blood 08/13/2024 10:3 3 AM CDT 08/13/2024 10:55 AM CDT Branden Fox MD LAB BLOOD ORDERABLES Final Resu lt Performing Organization Address [facility] Co de Phone Number [facility] [place] [address] * Gliadin antibody, IgG (08/13/2024 10:33 AM CDT) Anti-gliadin, IgG 14.2 <=14.9 units/mL Comment: Interpretive data Negative: <15 units/mL Positive: > or equal to 15 units/mL Current interpretive data was last revised on 2016. Blood 08/13/2024 10:3 3 AM CDT 08/13/2024 10:55 AM CDT Branden Fox MD LAB BLOOD ORDERABLES Final Resu lt Performing Organization Address [facility] Co de Phone Number [facility] Department [place] [address] * (ABNORMAL) Tissue transglutaminase IgA (TGG-IgA Ab) (08/13/2024 10:33 AM CDT) TTG ab, IgA 22.5(H) <=14.9 units/mL Comment: Interpretive data Negative: <15 units/mL Positive: > or equal to 15 units/mL Current interpretive data was last revised on 2016. Blood 08/13/2024 10:3 3 AM CDT 08/13/2024 10:55 AM CDT us Branden Fox MD LAB BLOOD ORDERABLES Final Resu lt Performing Organization Address City/[facility]/ZIP Co de Phone Number [facility] [place] [address] * Vitamin D 25 hydroxy (08/13/2024 10:33 AM CDT) Vitamin D 25-OH 40 30 - 80 ng/mL Blood 08/13/2024 10:3 3 AM CDT 08/13/2024 10:55 AM CDT us Branden Fox MD LAB BLOOD ORDERABLES Final Resu lt Performing Organization Address [facility] Co de Phone Number [facility] [place] [address] * Folate (08/13/2024 10:33 AM CDT) Folic acid 13.6 >=5.0 ng/mL Blood 08/13/2024 10:3 3 AM CDT 08/13/2024 10:55 AM CDT us Branden Fox MD LAB BLOOD ORDERABLES Final Resu lt Performing Organization Address City/[facility]/ZIP Co de Phone Number [facility] Department [place] [address] * Ferritin (08/13/2024 10:33 AM CDT) Ferritin 52 13 - 150 ng/mL Blood 08/13/2024 10:3 3 AM CDT 08/13/2024 10:55 AM CDT Branden Fox MD LAB BLOOD ORDERABLES Final Resu lt Performing Organization Address City/[facility]/ZIP Co de Phone Number [facility] Department [place] [address] * Vitamin B12 (08/13/2024 10:33 AM CDT) Pathologist [facility] Vitamin B12 944 230 - 1,250 pg/mL Blood 08/13/2024 10:3 3 AM CDT 08/13/2024 10:55 AM CDT us Branden Fox MD LAB BLOOD ORDERABLES Final Resu lt [facility] Department [place] [address] * Comprehensive metabolic panel (08/13/2024 10:33 AM CDT) [facility] Sodium 138 135 - 145 mmol/L Potassium, pl 4.0 3.3 - 4.9 mmol/L [facility] Chloride 105 97 - 110 mmol/L [facility] CO2 25 22 - 32 mmol/L [facility] Anion gap 8 2 - 15 mmol/L [facility] BUN 11 6 - 25 mg/dL [facility] Creatinine 0.78 0.60 - 1.10 mg/dL [facility] Glucose 86 70 - 199 mg/dL [facility] Comment: Interpretive Data Fasting glucose >/= 126 mg/dl is diagnostic for diabetes. Fasting is defined as no caloric intake for at least 8 hours. Fasting glucose between 100 mg/dl to 125 mg/dl is diagnostic of prediabetes. In a patient with classic symptoms of hyperglycemia or hyperglycemic crisis, a random glucose >/= 200 mg/dl is diagnostic for diabetes. In the absence of unequivocal hyperglycemia, results should be confirmed by repeat testing. The classification and Diagnosis of Diabetes Diabetes Care 202; 46: S19-S40. Current interpretive data was last revised 2022. Calcium 9.7 8.5 - 10.3 mg/dL [facility] Bilirubin, total 0.7 0.1 - 1.2 mg/dL [facility] Protein, pl 7.0 6.5 - 8.5 g/dL [facility] Albumin 4.8 3.5 - 5.0 g/dL [facility] Alk phos 51 40 - 130 Units/L [facility] ALT 12 7 - 45 Units/L [facility] AST 21 10 - 45 Units/L [facility] Blood 08/13/2024 10:3 3 AM CDT 08/13/2024 10:55 AM CDT us Branden Fox MD LAB BLOOD ORDERABLES Final Resu lt [facility] Department [place] [address] from Last 3 Months Insurance [place] [place] [place] [facility] CHOICE [place] [address] [address] Advance Directives For more information, please contact: [phone] * Full Code (Latest Code Status on File) Date Activated Date Inactivated Comments 08/22/2023 11:50 PM 08/23/2023 9:20 PM Care Teams Irrigation Foreman Relationship Specialty Start Date End Date Denver Beatty MD [address] [place] [id number] PCP - General Family Medicine 08/13/23
--- OUTSIDE RECORDS SUMMARY | 2024-10-14 07:58 | XMS_ITS | Referral Summary ---
Author Organization [facility] Address [address] [place] [address] Care Team Providers Care Java Portal Developer Name Role Phone Denver Beatty MD Primary Care Provider [phone] Encounters Date Type Department Care Team Description 08/19/2024 9:15 AM CDT Telemedicine [facility] [address] [place] [address] [address] [place] [address] [place] [phone] F[address] Hernandez [address] Celiac disease/sprue 08/18/2024 Results Follow-Up [facility] [address] [place] [address] 12[address] [place] [address] [place] [phone] Hodan Richardson RN Thyroid Function [place], Vitamin D 25 hydroxy, Folate, Additional followed-up results: 8 08/13/2024 11:15 AM CDT Lab [facility] [address] [place] [phone] Celiac disease/sprue 08/13/2024 9:30 AM CDT Office Visit [facility] [address] [place] [address] 12th [place] [address] [place] [phone] Branden Fox MD Celiac disease/sprue (Primary Dx); Severe ulcerative colitis (HCC); Chronic constipation from Last 3 Months Allergies Active Allergy Reactions Criticality Noted Date [...] (10/17/2020): Added automatically from request for surgery [id number] Hematochezia 10/17/2020 Overview (10/17/2020): Added automatically from request for surgery [id number] Dyspnea on exertion 01/16/2019 Assessment & Plan [...] history and treatment. - Placed order for for VCD treatment. We are happy to [...] obtained through mother. 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 [place] [address] * Differential, auto (08/13/2024 10:33 AM CDT) Neutrophil abs 3.37 1.50 - 6.50 K/cumm Imm gran abs 0.02 0.00 - 0.10 K/cumm [facility] Lymphocyte abs 2.30 0.80 - 3.30 K/cumm [facility] Monocyte abs 0.49 0.20 - 0.80 K/cumm [facility] Eosinophil abs 0.31 0.00 - 0.50 K/cumm [facility] Basophil abs 0.04 0.00 - 0.10 K/cumm [facility] Neutrophil pct 51.7 % [facility] Comment: Interpretive Data Percent cell count reference ranges are not reported, since discordance with absolute values may lead to misinterpretation of CBC data. Current Interpretive Data was last revised on 2017. Imm gran pct 0.3 % [facility] Comment: Interpretive Data Percent cell count reference ranges are not reported, since discordance with absolute values may lead to misinterpretation of CBC data. Current Interpretive Data was last revised on 2017. Lymphocyte pct 35.2 % [facility] Comment: Interpretive Data Percent cell count reference ranges are not reported, since discordance with absolute values may lead to misinterpretation of CBC data. Current Interpretive Data was last revised on 2017. Monocyte pct 7.5 % [facility] Comment: Interpretive Data Percent cell count reference ranges are not reported, since discordance with absolute values may lead to misinterpretation of CBC data. Current Interpretive Data was last revised on 2017. Eosinophil pct 4.7 % [facility] Comment: Interpretive Data Percent cell count reference ranges are not reported, since discordance with absolute values may lead to misinterpretation of CBC data. Current Interpretive Data was last revised on 2017. Basophil pct 0.6 % [facility] Comment: Interpretive Data Percent cell count reference ranges are not reported, since discordance with absolute values may lead to misinterpretation of CBC data. Current Interpretive Data was last revised on 2017. Blood 08/13/2024 10:3 3 AM CDT 08/13/2024 10:55 AM CDT us Branden Fox MD LAB BLOOD ORDERABLES Final Resu lt [facility] Department [place] [address] * Thyroid Function Almira (08/13/2024 10:33 AM CDT) [facility] TSH 1.83 0.30 - 4.20 mcIUnit/mL Blood 08/13/2024 10:3 3 AM CDT 08/13/2024 10:55 AM CDT Branden Fox MD LAB BLOOD ORDERABLES Final Resu lt Performing Organization Address [facility] Co de Phone Number [facility] [place] [address] * CBC with auto differential (08/13/2024 10:33 AM CDT) [facility] WBC 6.53 3.80 - 9.90 K/cumm Hgb 12.8 11.9 - 15.5 g/dL [facility] Hct 37.4 35.6 - 45.5 % [facility] Plt 268 150 - 400 K/cumm [facility] MPV 9.2 9.1 - 12.3 fL [facility] RBC 4.30 3.90 - 5.20 M/cumm [facility] MCV 87.0 81.3 - 96.4 fL [facility] MCH 29.8 27.1 - 33.3 pg [facility] MCHC 34.2 32.3 - 35.7 g/dL [facility] RDW CV 12.0 11.1 - 14.9 % [facility] RDW SD 38.5 35.7 - 48.1 fL [facility] NRBC abs 0.00 0.00 - 0.01 K/cumm [facility] Blood 08/13/2024 10:3 3 AM CDT 08/13/2024 10:55 AM CDT us Branden Fox MD LAB BLOOD ORDERABLES Final Resu lt Performing Organization Address City/[facility] Co de Phone Number [facility] Department [place] [address] * Gliadin antibody, IgG (08/13/2024 10:33 AM CDT) Anti-gliadin, IgG 14.2 <=14.9 units/mL Comment: Interpretive data Negative: <15 units/mL Positive: > or equal to 15 units/mL Current interpretive data was last revised on 2016. Blood 08/13/2024 10:3 3 AM CDT 08/13/2024 10:55 AM CDT Branden Fox MD LAB BLOOD ORDERABLES Final Resu lt Performing Organization Address [facility] de Phone Number [facility] [place] [address] * (ABNORMAL) Tissue transglutaminase IgA (TGG-IgA Ab) (08/13/2024 10:33 AM CDT) TTG ab, IgA 22.5(H) <=14.9 units/mL Comment: Interpretive data Negative: <15 units/mL Positive: > or equal to 15 units/mL Current interpretive data was last revised on 2016. Blood 08/13/2024 10:3 3 AM CDT 08/13/2024 10:55 AM CDT Branden Fox MD LAB BLOOD ORDERABLES Final Resu lt Performing Organization Address [facility] Co de Phone Number [facility] [place] [address] * Vitamin D 25 hydroxy (08/13/2024 10:33 AM CDT) Vitamin D 25-OH 40 30 - 80 ng/mL Blood 08/13/2024 10:3 3 AM CDT 08/13/2024 10:55 AM CDT us Branden Fox MD LAB BLOOD ORDERABLES Final Resu lt Performing Organization Address City/[facility]/ZIP Co de Phone Number [facility] [employer] [place] [address] * Folate (08/13/2024 10:33 AM CDT) Folic acid 13.6 >=5.0 ng/mL Blood 08/13/2024 10:3 3 AM CDT 08/13/2024 10:55 AM CDT Branden Fox MD LAB BLOOD ORDERABLES Final Resu lt Performing Organization Address [facility] Co de Phone Number [facility] [place] [address] * Ferritin (08/13/2024 10:33 AM CDT) Ferritin 52 13 - 150 ng/mL Blood 08/13/2024 10:3 3 AM CDT 08/13/2024 10:55 AM CDT us Branden Fox MD LAB BLOOD ORDERABLES Final Resu lt Performing Organization Address City/[facility] Co de Phone Number [facility] [place] [employer] [place] [address] * Vitamin B12 (08/13/2024 10:33 AM CDT) Vitamin B12 944 230 - 1,250 pg/mL Blood 08/13/2024 10:3 3 AM CDT 08/13/2024 10:55 AM CDT Branden Fox MD LAB BLOOD ORDERABLES Final Resu lt Performing Organization Address City/[facility]/ZIP Co de Phone Number [facility] [employer] [place] [address] * Comprehensive metabolic panel (08/13/2024 10:33 AM CDT) Sodium 138 135 - 145 mmol/L Potassium, pl 4.0 3.3 - 4.9 mmol/L [facility] Chloride 105 97 - 110 mmol/L [facility] CO2 25 22 - 32 mmol/L [facility] Anion gap 8 2 - 15 mmol/L [facility] BUN 11 6 - 25 mg/dL [facility] Creatinine 0.78 0.60 - 1.10 mg/dL [facility] Glucose 86 70 - 199 mg/dL [facility] Comment: Interpretive Data Fasting glucose >/= 126 [...] Calcium 9.7 8.5 - 10.3 mg/dL [facility] Bilirubin, total 0.7 0.1 - 1.2 mg/dL [facility] Protein, pl 7.0 6.5 - 8.5 g/dL [facility] Albumin 4.8 3.5 - 5.0 g/dL [facility] Alk phos 51 40 - 130 Units/L [facility] ALT 12 7 - 45 Units/L [facility] AST 21 10 - 45 Units/L [facility] Blood 08/13/2024 10:3 3 AM CDT 08/13/2024 10:55 AM CDT us Branden Fox MD LAB BLOOD ORDERABLES Final Resu lt [facility] Department [place] [address] from Last 3 Months Insurance [employer] [place] [employer] [place] [facility] CHOICE PLUS [facility] Advance Directives For more information, please contact: [phone] * Full Code (Latest Code Status on File) Date Activated Date Inactivated Comments 08/22/2023 11:50 PM 08/23/2023 9:20 PM Care Teams Java Portal Developer Relationship Specialty Start Date End Date Denver Beatty MD [address] [place] [address] PCP - General Family Medicine 08/13/23
== END 2024-10-14 07:57 | disposition home or self-care (01) ==
LOC: ANHAUDASC 07:57
PROVIDERS: Visit Provider Otolaryngology
DX: H65.491 Other chronic nonsuppurative otitis media, right ear (principal); H69.91 Unspecified Eustachian tube disorder, right ear; H90.11 Conductive hearing loss, unilateral, right ear, with unrestricted hearing on the contralateral side
CPT/HCPCS: 92557; 92567

== ENCOUNTER 2024-10-19 01:19 | Day surgery (SDC) | payer BC, SELFPAY ==
[2024-10-13 13:31] VITALS: BMI 19.5
--- NOTE | 2024-10-13 13:44 | SUR.PREOP ---
Report to the Outpatient Waiting Room, entrance under the green pavilion located off [facility], at time 0600 on date 10/19/24. Planned Procedure Time: 0800.? Time changes happen often and if your time is changed the preop area will call you the afternoon before. - You and your visitor will be asked to self-screen and do not enter if you have any COVID symptoms. Please call surgeon if you need to reschedule. - A mask is optional within the hospital at this time. Patients may have clear liquids (water, carbonated beverages, clear teas, apple juice) until 3 hours prior to surgery with a maximum of 20 ounces. - No food from midnight until time of surgery and no smoking, or chewing tobacco (or any form of nicotine). No chewing gum, candy or mints. - Infants may have breast milk until 4 hours before surgery, infant formula 6 hours prior to surgery. - Children will be allowed to drink immediately following surgery.? If applicable, please bring a bottle or sippy cup to assist with drinking. Juice, water, soda, and popsicles are readily available.? For infants on formula, please bring formula the day of surgery.? Pacifiers are allowed. Take only the following medications with a SIP of water on the morning of surgery: N/A DO NOT STOP ANY OF YOUR OTHER PRESCRIPTION MEDICATIONS PRIOR TO SURGERY EXCEPT THE FOLLOWING Hold all vitamins and supplements for 3 days per anesthesiologist. Medications to discontinue per physician N/A Date to take last dose N/A Please no make-up, nail lao, hairspray, perfume, deodorant, or body powder the day of surgery.? No jewelry (including any body piercings) or valuables the day of surgery, leave them at home.? Please take a shower or bath the night before, or the morning of, surgery with an antibacterial soap.? Wear comfortable, loose fitting clothing.? Children are encouraged to wear pajamas. - Jewelry must be removed prior to entering the operating room.? Rings and piercings that are not removed may be cut off. - The hospital will not accept responsibility for valuables.? - Please leave all valuables, including medications, at home the day of surgery. If you are going home after surgery, a licensed train driver must drive you home.? - NO public transportation without another adult if you receive anesthesia. - We recommend that an adult stay with you for 24 hours following discharge. - We also recommend that you do not drive, make important decision, drink alcoholic beverages, or take any drugs that were not prescribed by your health care provider for at least 24 hours after your discharge time. For Pediatric surgeries, we recommend two adults accompany the child home. Follow any additional instructions given to you from your surgeon. Telephone instructions given to [employer] and asked if any additional questions and then verbalized understanding. Patient advised to call surgeon office or pre surgery nurse liaison [phone] if any additional questions.
[2024-10-19] VITALS (10 sets, daily range): BP systolic 103–122; BP diastolic 55–75; PULSE 67–111; RESP 12–30; TEMP 36.2–37.1; O2SAT 97–100
--- OUTSIDE RECORDS SUMMARY | 2024-10-19 01:21 | XMS_ITS | Clinical Summary ---
Author Organization [facility] [employer] Address [address] [place] [address] Care Team Providers Care Craft Superintendent Name Role Phone Unavailable Primary Care Provider Unavailabl e Source Comments [facility] [employer],non-owned Affiliates and Associated Physician Practices is amultiple site organization consisting of ambulatory clinics and hospital sitesin [place], [place], [place] and [place]. This disclosure is being madepursuant to the Care Everywhere program and may not contain all information available regarding this patient. Last updated 17.[facility] [employer] Allergies Active Allergy Reactions Criticality Noted Date [...] on file Legal Sex Female 3:08 PM COMMODITY SPECIALIST Gender Identity Not on file Sexual Orientation Not on file Last Filed Vital Signs Vital Sign Reading Time Taken Comments Blood Pressure 114/65 05/06/2014 3:14 PM COMMODITY SPECIALIST Pulse 68 05/06/2014 3:14 PM COMMODITY SPECIALIST Temperature 36.2 C (97.2 F) 05/06/2014 3:14 PM COMMODITY SPECIALIST Respiratory Rate 20 05/06/2014 3:14 PM COMMODITY SPECIALIST Oxygen Saturation 100% 05/06/2014 3:14 PM COMMODITY SPECIALIST Inhaled Oxygen Concentration - - Weight 31.5 kg (69 lb 7.1 oz) 05/06/2014 3:14 PM COMMODITY SPECIALIST Height - - Body Mass Index - [...] patient's age to complete this topic Insurance [facility]
--- OUTSIDE RECORDS SUMMARY | 2024-10-19 01:21 | XMS_ITS | Encounter Summary ---
Author Organization [facility] Address [address] [place] [address] Care Team Providers Care Mailroom Manager Name Role Phone Jason Bliss MD Primary Care Provider [phone] Denver Beatty MD Primary Care Provider [phone] Encounter Details Date Type Department Care Team (Late st Contact Info) Description 07/21/2021 Telephone [facility] MRI Department [address] [place] [address] Bessie Cain RT Social History Tobacco Use Types Packs/Day Years Used Date Smoking Tobacco: Never Smokeless Tobacco: Never Comments Unknown Sex and Gender Information Value Date Recorded Sex Assigned at Not on file 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
--- OUTSIDE RECORDS SUMMARY | 2024-10-19 01:21 | XMS_ITS | Clinical Summary ---
Author Organization [facility] Address [address] [place] [phone] Care Team Providers Care Leak Gang Supervisor Name Role Phone Unavailable Primary Care Provider Unavailabl e Immunizations Immunization Administration Dates Next Due Covid-19, Mrna, Lnp-s, Pf, 30 Mcg/0.3 Ml Dose (P fizer) 04/05/2021 Social History Tobacco Use Types Packs/Day Years Used Date Smoking Tobacco: Never Assessed Comments Unknown Sex and Gender Information Value Date Recorded Sex Assigned at Not on file Legal Sex Female 2:[address] M[address]INE OPERATOR Gender Identity Not on file Sexual [...]
--- OUTSIDE RECORDS SUMMARY | 2024-10-19 01:21 | XMS_ITS | Clinical Summary ---
Author Organization [facility] Address [address] [address] [place] [address] Care Team Providers Care Plumbing Service Technician Name Role Phone Jason Bliss MD Primary Care Provider [phone] Allergies Active Allergy Reactions Criticality Noted Date Comments Adhesive Other (See Comments) 05/24/2022 Burning on skin Amoxicillin Hives High 05/24/2022 Medications spironolactone (ALDACTONE) 50 mg tablet TAKE 3 TABLETS BY MOUTH DAILY 3 Active vedolizumab (Entyvio) 300 mg Recon Soln Inject 300 mg by intravenous injection. 3 Active Active Problems Problem Noted Date Diagnosed Date Inflammatory bowel disease 06/30/2022 Social History Tobacco Use Types Packs/Day Years Used Date Smoking Tobacco: Never Assessed Comments No Sex and Gender Information Value Date Recorded Sex Assigned at Not on file Legal Sex Female 1:27 PM CDT Gender Identity Not on file Sexual Orientation Not on file Last Filed Vital Signs Vital Sign Reading Time Taken Comments Blood Pressure 110/79 02/11/2023 11:29 AM SAUSAGE MAKER Pulse 77 02/11/2023 11:29 AM SAUSAGE MAKER Temperature 36.7 C (98 F) 02/11/2023 11:29 AM SAUSAGE MAKER Respiratory Rate 20 02/11/2023 11:29 AM SAUSAGE MAKER Oxygen Saturation 99% 02/11/2023 11:29 AM SAUSAGE MAKER Inhaled Oxygen Concentration - - Weight 54.4 kg (120 lb) 02/11/2023 11:29 AM SAUSAGE MAKER Height 170.2 cm (5' 7) 02/11/2023 11:29 AM SAUSAGE MAKER Body Mass Index 18.79 02/11/2023 11:29 AM SAUSAGE MAKER Plan of Treatment Health Maintenance Due Date Last Done Comments CHLAMYDIA SCREENING (ANNUAL) 11-24 YEARS 2014 COVID-19 Vaccine (2 2023-2 5 season) 2023 04/05/2021 CERVICAL CANCER SCREENING 2024 HPV/Cotest (21-29) 2024 PAP SMEAR 2024 DTAP/TDAP/TD VACCINES (7 - T d or Tdap) 09/21/2024 09/21/2014, 09/21/2008, 10/27/2004, Additional history exists INFLUENZA VACCINE (#1) 2024 , 06/01/2021, 04/20/2020, Additional history exists HEPATITIS B VACCINES Completed 2003, 2003, 2003, Additional history exists HPV VACCINES Completed 09/26/2015, 09/21/2014 Insurance [employer] Care Teams Plumbing Service Technician Relationship Specialty Start Date End Date Jason Bliss MD [address] [place] [phone] PCP - General 06/30/22
--- OUTSIDE RECORDS SUMMARY | 2024-10-19 01:21 | XMS_ITS | Referral Summary ---
Author Organization [facility] Address [address] [place] [address] Care Team Providers Care Resource Paraprofessional Name Role Phone Denver Beatty MD Primary Care Provider [phone] Encounters Date Type Department Care Team Description 08/19/2024 9:15 AM CDT Telemedicine [facility] [address] [place] [address] 12th [place] [address] [place] [id number] F[address] Hernandez [address] Celiac disease/sprue 08/18/2024 Results Follow-Up [facility] [address] [place] [address] 12th [place] [address] [place] [phone] Hodan Richardson RN Thyroid Function [place], Vitamin D 25 hydroxy, Folate, Additional followed-up results: 8 08/13/2024 11:15 AM CDT Lab [facility] [address] [place] [phone] Celiac disease/sprue 08/13/2024 9:30 AM CDT Office Visit [facility] [address] [place] [address] 12th [place] [address] [place] [phone] Branden Fox MD Celiac disease/sprue (Primary Dx); [...] (10/17/2020): Added automatically from request for surgery [id number] Hematochezia 10/17/2020 Overview (10/17/2020): Added automatically from request for surgery [id number] Dyspnea on exertion 01/16/2019 Assessment & Plan [...] on file 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 Gender Identity Not on file [...] ORDERABLES Final Resu lt ISAÍAS ERICKSON [facility] [place] [address] * Differential, auto (08/13/2024 10:33 AM CDT) Neutrophil abs 3.37 1.50 - 6.50 K/cumm Imm gran abs 0.02 0.00 - 0.10 K/cumm [facility] Lymphocyte abs 2.30 0.80 - 3.30 K/cumm [facility] Monocyte abs 0.49 0.20 - 0.80 K/cumm [facility] Eosinophil abs 0.31 0.00 - 0.50 K/cumm [facility] Basophil abs 0.04 0.00 - 0.10 K/cumm [facility] Neutrophil pct 51.7 % [facility] Comment: Interpretive Data Percent cell count reference ranges are not reported, since discordance with absolute values may lead to misinterpretation of CBC data. Current Interpretive Data was last revised on 2017. Imm gran pct 0.3 % [facility] Comment: Interpretive Data Percent cell count reference ranges are not reported, since discordance with absolute values may lead to misinterpretation of CBC data. Current Interpretive Data was last revised on 2017. Lymphocyte pct 35.2 % [facility] Comment: Interpretive Data Percent cell count reference ranges are not reported, since discordance with absolute values may lead to misinterpretation of CBC data. Current Interpretive Data was last revised on 2017. Monocyte pct 7.5 % [facility] Comment: Interpretive Data Percent cell count reference ranges are not reported, since discordance with absolute values may lead to misinterpretation of CBC data. Current Interpretive Data was last revised on 2017. Eosinophil pct 4.7 % [facility] Comment: Interpretive Data Percent cell count reference ranges are not reported, since discordance with absolute values may lead to misinterpretation of CBC data. Current Interpretive Data was last revised on 2017. Basophil pct 0.6 % [facility] Comment: Interpretive Data Percent cell count reference ranges are not reported, since discordance with absolute values may lead to misinterpretation of CBC data. Current Interpretive Data was last revised on 2017. Blood 08/13/2024 10:3 3 AM CDT 08/13/2024 10:55 AM CDT us Branden Fox MD LAB BLOOD ORDERABLES Final Resu lt [facility] Department [place] [address] * Thyroid Function [place] (08/13/2024 10:33 AM CDT) [facility] TSH 1.83 0.30 - 4.20 mcIUnit/mL Blood 08/13/2024 10:3 3 AM CDT 08/13/2024 10:55 AM CDT Branden Fox MD LAB BLOOD ORDERABLES Final Resu lt Performing Organization Address [facility] Co de Phone Number [facility] [place] [address] * CBC with auto differential (08/13/2024 10:33 AM CDT) [facility] WBC 6.53 3.80 - 9.90 K/cumm Hgb 12.8 11.9 - 15.5 g/dL [facility] Hct 37.4 35.6 - 45.5 % [facility] Plt 268 150 - 400 K/cumm [facility] MPV 9.2 9.1 - 12.3 fL [facility] RBC 4.30 3.90 - 5.20 M/cumm [facility] MCV 87.0 81.3 - 96.4 fL [facility] MCH 29.8 27.1 - 33.3 pg [facility] MCHC 34.2 32.3 - 35.7 g/dL [facility] RDW CV 12.0 11.1 - 14.9 % [facility] RDW SD 38.5 35.7 - 48.1 fL [facility] NRBC abs 0.00 0.00 - 0.01 K/cumm [facility] Blood 08/13/2024 10:3 3 AM CDT 08/13/2024 10:55 AM CDT us Branden Fox MD LAB BLOOD ORDERABLES Final Resu lt Performing Organization Address [facility] Co de Phone Number [facility] Department [place] [address] * Gliadin antibody, IgG (08/13/2024 10:33 AM CDT) Anti-gliadin, IgG 14.2 <=14.9 units/mL Comment: Interpretive data Negative: <15 units/mL Positive: > or equal to 15 units/mL Current interpretive data was last revised on 2016. Blood 08/13/2024 10:3 3 AM CDT 08/13/2024 10:55 AM CDT Branden Fox MD LAB BLOOD ORDERABLES Final Resu lt Performing Organization Address [facility] de Phone Number [facility] [place] [address] * (ABNORMAL) Tissue transglutaminase IgA (TGG-IgA Ab) (08/13/2024 10:33 AM CDT) TTG ab, IgA 22.5(H) <=14.9 units/mL Comment: Interpretive data Negative: <15 units/mL Positive: > or equal to 15 units/mL Current interpretive data was last revised on 2016. Blood 08/13/2024 10:3 3 AM CDT 08/13/2024 10:55 AM CDT Branden Fox MD LAB BLOOD ORDERABLES Final Resu lt Performing Organization Address [facility] Co de Phone Number [facility] [place] [address] * Vitamin D 25 hydroxy (08/13/2024 10:33 AM CDT) Vitamin D 25-OH 40 30 - 80 ng/mL Blood 08/13/2024 10:3 3 AM CDT 08/13/2024 10:55 AM CDT us Branden Fox MD LAB BLOOD ORDERABLES Final Resu lt Performing Organization Address City/[facility]/ZIP Co de Phone Number [facility] [place] [address] * Folate (08/13/2024 10:33 AM CDT) Folic acid 13.6 >=5.0 ng/mL Blood 08/13/2024 10:3 3 AM CDT 08/13/2024 10:55 AM CDT Branden Fox MD LAB BLOOD ORDERABLES Final Resu lt Performing Organization Address [facility] Co de Phone Number [facility] [place] [address] * Ferritin (08/13/2024 10:33 AM CDT) Ferritin 52 13 - 150 ng/mL Blood 08/13/2024 10:3 3 AM CDT 08/13/2024 10:55 AM CDT us Branden Fox MD LAB BLOOD ORDERABLES Final Resu lt Performing Organization Address [facility] Co de Phone Number [facility] [place] [address] * Vitamin B12 (08/13/2024 10:33 AM CDT) Vitamin B12 944 230 - 1,250 pg/mL Blood 08/13/2024 10:3 3 AM CDT 08/13/2024 10:55 AM CDT Branden Fox MD LAB BLOOD ORDERABLES Final Resu lt Performing Organization Address City/[facility]/ZIP Co de Phone Number [facility] [place] [address] * Comprehensive metabolic panel (08/13/2024 10:33 AM CDT) Sodium 138 135 - 145 mmol/L Potassium, pl 4.0 3.3 - 4.9 mmol/L [facility] Chloride 105 97 - 110 mmol/L [facility] CO2 25 22 - 32 mmol/L [facility] Anion gap 8 2 - 15 mmol/L [facility] BUN 11 6 - 25 mg/dL [facility] Creatinine 0.78 0.60 - 1.10 mg/dL [facility] Glucose 86 70 - 199 mg/dL [facility] Comment: Interpretive Data Fasting glucose >/= 126 [...] 2022. Calcium 9.7 8.5 - 10.3 mg/dL [facility] Bilirubin, total 0.7 0.1 - 1.2 mg/dL [facility] Protein, pl 7.0 6.5 - 8.5 g/dL [facility] Albumin 4.8 3.5 - 5.0 g/dL [facility] Alk phos 51 40 - 130 Units/L [facility] ALT 12 7 - 45 Units/L [facility] AST 21 10 - 45 Units/L [facility] Blood 08/13/2024 10:3 3 AM CDT 08/13/2024 10:55 AM CDT us Branden Fox MD LAB BLOOD ORDERABLES Final Resu lt [facility] Department [place] [address] from Last 3 Months Insurance [employer] [place] [employer] [place] [facility] [employer] Advance Directives For more information, please contact: [phone] * Full Code (Latest Code Status on File) Date Activated Date Inactivated Comments 08/22/2023 11:50 PM 08/23/2023 9:20 PM Care Teams Resource Paraprofessional Relationship Specialty Start Date End Date Denver Beatty MD [address] [place] [address] PCP - General Family Medicine 08/13/23
--- OUTSIDE RECORDS SUMMARY | 2024-10-19 01:21 | XMS_ITS | Encounter Summary ---
Author Organization [facility] Address [address] [place] [address] Care Team Providers Care Computing Consultant Name Role Phone Jason Bliss MD Primary Care Provider [phone] Denver Beatty MD Primary Care Provider [phone] Encounter Details Date Type Department Care Team (Late st Contact Info) Description 07/21/2021 Telephone [facility] MRI Department [address] [place] [address] Bessie Cain RT Social History Tobacco Use Types Packs/Day Years Used Date Smoking Tobacco: Never Smokeless Tobacco: Never Comments Unknown Sex and Gender Information Value Date Recorded Sex Assigned at Not on file 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
--- OUTSIDE RECORDS SUMMARY | 2024-10-19 01:21 | XMS_ITS | Encounter Summary ---
Author Organization [facility] Address [address] [place] [address] Phone Care Team Providers Care Business Continuity Planner Name Role Phone Jason Bliss MD Primary Care Provider [phone] Denver Beatty MD Primary Care Provider [phone] Reason for Visit * Reason Onset Date Comments QUESTION 06/04/2018 MOM CALLING WITH QUESTION ABOUT CARDIO VISIT, NOT BEE Encounter Details Date Type Department Care Team (Late st Contact Info) Description 06/04/2018 Telephone [facility] Pulmonology [facility] 2nd [place] [address] [place] [address] Odette Bello QUESTION (MOM CALLING WITH QUESTION ABOUT CARDIO VISIT, NOT BEE) Social History Tobacco Use Types Packs/Day Years Used Date Smoking Tobacco: Never Smokeless Tobacco: Never Comments Unknown Sex and Gender Information Value Date Recorded Sex Assigned at Not on file 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
--- OUTSIDE RECORDS SUMMARY | 2024-10-19 01:21 | XMS_ITS | Encounter Summary ---
Author Organization [facility] Address [address] [place] [address] Phone Care Team Providers Care Key Worker Name Role Phone Denver Beatty MD Primary Care Provider [phone] Encounter Details Date Type Department Care Team (Late st Contact Info) Description 08/18/2024 Results Follow-Up [facility] Gastroenterology [address] [facility] 12th [place] [address] [place] [address] Hodan Richardson RN Thyroid Function [place], Vitamin D 25 hydroxy, Folate, Additional followed-up [...] on file 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
--- OUTSIDE RECORDS SUMMARY | 2024-10-19 01:21 | XMS_ITS | CCD ---
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 FINAL [facility], [address] [address] [place] [address] Terese- andi Rankin Laz VILLATORO 01/29 C-jane ctive prote in panel C-jane ctive prote in, quant , mg/L mg/L <3.0 Chelsea l FINAL [facility], [address] [address] [place] [address] Terese- andi Rankin Laz VILLATORO 01/29 Vitam in D, 25-OH , D2 ng/mL <1.0 This test was developed and its analytica l performan cecharact eristics have been determine d by [employer]. It has not been cleared or approved by theA. This assay has been validated pursuant to the [facility] and is used for clinical purposes. Your request to have a duplicate copy faxed has been acknowled ged. Queued to: [phone] FINAL [employer] [place], [facility], [address] [facility] [place] [address] Mushtaq Flores i PhD, [facility] 01/29 Vitam in D, 25-OH , D3 ng/mL 38.0 This test was developed and its analytica l performan cecharact eristics have been determine d by [employer]. It has not been cleared or approved by theA. This assay has been validated pursuant to the [facility] and is used for clinical purposes. FINAL [employer] [address], [address] [facility] [place] [address] Mushtaq Flores i PhD, [facility] 01/29 Vitam in D, 25-hy droxy ng/mL 38.0 This test was developed and its analytica l performan cecharact eristics have been determine d by [facility]. It has not been cleared or approved [...] Therapy is based on measureme nt of Eokyl10-T HD, with levels <20 ng/mL indicativ e [...] = 30 ng/mL. FINAL Kelsi thomas [facility] [address] [place] [address], [address] [place] [address] Mushtaq Flores i PhD, DAB 01/29 GGT panel GGT U/L 3.0 40.0 7 Chelsea l FINAL [facility], [facility] [address] Terese-Lie u T Laz VILLATORO 01/29 CMP ALT/S GPT U/L 6.0 29.0 12 Chelsea l FINAL [facility], [facility] [address] Terese-Lie u T Laz VILLATORO 01/29 CMP A/G ratio (calc) 1.0 2.5 2.1 Chelsea l FINAL [facility] hsruti, Brandon [facility] [place] 52 Terese-Lie u T Vo 01/29 CMP Gluco se mg/dL 65.0 139.0 78 Chelsea l Non-fasti ng reference interval FINAL [facility], [facility] [place] 52 Terese-Lie u T Vo 01/29 CMP Globu abrahan g/dL(c alc) 1.9 3.7 2.1 Chelsea l FINAL [facility], [facility] [place] 52 Terese-Lie u T Vo 01/29 CMP Total prote in g/dL 6.1 8.1 6.5 Chelsea l FINAL [facility], [facility] [place] 52 Terese-Lie u T Vo 01/29 CMP AST/S GOT U/L 10.0 30.0 16 Chelsea l FINAL [facility], [facility] [place] 52 Terese-Lie u T Vo 01/29 CMP Bilir ubin, total mg/dL 0.2 1.2 0.4 Chelsea l FINAL [facility], [facility] [place] 52 Terese-Lie u T Vo 01/29 CMP Sodiu m mmol/L 135.0 146.0 138 Chelsea l FINAL [facility], [facility] [place] 52 Terese-Lie u T Vo 01/29 CMP Alkal ine phosp hatas e U/L 31.0 125.0 37 Chelsea l FINAL [facility], [facility] [place] 52 Terese-Lie u T Vo 01/29 CMP Calci um mg/dL 8.6 10.2 9.4 Chelsea l FINAL [facility], [facility] [place] 52 Terese-Lie u T Vo 01/29 CMP CO2 mmol/L 20.0 32.0 25 Chelsea l FINAL [facility], [facility] [place] 52 Terese-Lie u T Vo 01/29 CMP EGFR mL/min /1.73m 2 90 Chelsea l FINAL [facility], [facility] [place] 52 Terese-Lie u T Vo 01/29 CMP Chlor marcia mmol/L 98.0 110.0 104 Chelsea l FINAL [facility], [facility] [place] 52 Terese-Lie u T Vo 01/29 CMP BUN mg/dL 7.0 25.0 12 Chelsea l FINAL [facility], [facility] [place] 52 Terese-Lie u T Vo 01/29 CMP Creat inine mg/dL 0.5 0.96 0.93 Chelsea l FINAL [facility], [facility] [place] 52 Terese-Lie u T Vo 01/29 CMP Album in g/dL 3.6 5.1 4.4 Chelsea l FINAL [facility], [facility] [place] 52 Terese-Lie u T Vo 01/29 CMP BUN/C reati nine ratio (calc) 6.0 22.0 SEE NOTE: Not Reported: BUN and Creatinin e are within reference range. FINAL [facility], [facility] [place] 52 Terese-Lie u T Vo 01/29 CMP Potas sium mmol/L 3.5 5.3 4.2 Chelsea l FINAL [facility], [facility] [place] 52 Terese-Lie u T Vo 01/29 Iron, TIBC, Irvin tin panel Irvin tin ng/mL 16.0 154.0 10 Low FINAL [facility], [facility] 52 - u T Vo 01/29 Iron, TIBC, Irvin tin panel Iron, % satur ation %(calc ) 16.0 45.0 34 Chelsea l FINAL [facility], [facility] 52 u T Laz VILLATORO 01/29 Iron, TIBC, Irvin tin panel Iron mcg/dL 40.0 190.0 119 Chelsea l FINAL [facility], [facility] 52 u T Vo 01/29 Iron, TIBC, Irvin tin panel TIBC mcg/dL (calc) 250.0 450.0 345 Chelsea l FINAL [facility], [facility] 52 u T Vo 01/29 CBC w/ auto diff MCV fL 80.0 100.0 93.9 Chelsea l FINAL [facility], [facility] 52 u T Vo 01/29 CBC w/ auto diff Neutr ophil band, Ab, cells /uL cells/ uL 0.0 750.0 DNR Chelsea l FINAL [facility], [facility] 52 u T Laz VILLATORO 01/29 CBC w/ auto diff MO % % 6.4 Chelsea l FINAL [facility], [facility] 52 u T Vo 01/29 CBC w/ auto diff Metam yeloc yte % % DNR Chelsea l FINAL [facility], [facility] 52 - u T Vo 01/29 CBC w/ auto diff Metam yeloc ytes, absol alatna cells/ uL DNR Chelsea l FINAL [facility] [facility], [address] [facility] [place] [address] Terese-Lie u T Vo 01/29 CBC w/ auto diff ELIANE #, cells /uL cells/ uL 1500.0 7800.0 1899 Chelsea l FINAL [facility], [facility] [place] [address] Terese-Lie u T Vo 01/29 CBC w/ auto diff EO % % 2.4 Chelsea l FINAL [facility], [facility] [address] Terese-Lie u T Vo 01/29 CBC w/ auto diff RBC Millio n/uL 3.8 5.1 4.29 Chelsea l FINAL [facility], [facility] [place] [address] Terese-Lie u T Vo 01/29 CBC w/ auto diff MPV fL 7.5 12.5 9.7 Chelsea l FINAL [facility], [facility] [address] Terese-Lie u T Vo 01/29 CBC w/ auto diff BA % % 0.7 Chelsea l FINAL [facility], [facility] [address] Terese-Lie u T Vo 01/29 CBC w/ auto diff Promy elocy te % % DNR Chelsea l FINAL [facility], [place] [phone] Terese-Lie u T Vo 01/29 CBC w/ auto diff BA #, cells /uL cells/ uL 0.0 200.0 32 Chelsea l FINAL [facility], [facility] [address] Terese-Lie u T Vo 01/29 CBC w/ auto diff Band, % % DNR Chelsea l FINAL [facility], [place] [phone] Terese-Lie u T Vo 01/29 CBC w/ auto diff HGB g/dL 11.7 15.5 12.8 Chelsea l FINAL [facility], [place] 52 01/29 CBC w/ auto diff Myelo cyte % % DNR Chelsea l FINAL [facility], [facility] 01/29 CBC w/ auto diff NRBC, absol alatna, cells /uL cells/ uL DNR Chelsea l FINAL [facility], [facility] [place] 52 01/29 CBC w/ auto diff MCHC g/dL 32.0 36.0 31.8 Low For adults, a slight decrease in the calculate d MCHCvalue (in the range of 30 to 32 g/dL) is most likelynot clinicall y significa nt; however, it should beinterpr eted with caution in correlati on with otherred cell parameter s and the patient's clinicalc ondition. FINAL [facility], [facility] 52 01/29 CBC w/ auto diff HCT % 35.0 45.0 40.3 Chelsea l FINAL [facility], [facility] [place] 52 01/29 CBC w/ auto diff React john lymph ocyte , % % 0.0 10.0 DNR Chelsea l FINAL [facility], [facility] [place] 52 01/29 CBC w/ auto diff Blast s, absol alatna cells/ uL DNR Chelsea l FINAL [facility], [facility] [place] 52 Laz VILALTORO 01/29 CBC w/ auto diff Myelo cytes , absol alatna cells/ uL DNR Chelsea l FINAL [facility] [facility], [address] [facility] [place] [address] Laz VILLATORO 01/29 CBC w/ auto diff Promy elocy te, absol alatna, cells /uL cells/ uL DNR Chelsea l FINAL [facility] [facility], [address] [facility] 52 Laz VILLATORO 01/29 CBC w/ auto diff WBC Thousa nd/uL 3.8 10.8 4.5 Chelsea l FINAL [facility], [facility] 52 Laz VILLATORO 01/29 CBC w/ auto diff PLT [place] nd/uL 140.0 400.0 297 Chelsea l FINAL [facility] [facility], [address] [facility] 52 Laz VILLATORO 01/29 CBC w/ auto diff CBC Comme nts DNR Chelsea l FINAL [facility], [facility] [address] Laz VILLATORO 01/29 CBC w/ auto diff LY #, cells /uL cells/ uL 850.0 3900.0 2174 Chelsea l FINAL [facility], [facility] [address] Laz VILLATORO 01/29 CBC w/ auto diff Blast s % % DNR Chelsea l FINAL [facility], [facility] [address] Laz VILLATORO 01/29 CBC w/ auto diff RDW % 11.0 15.0 12.1 Chelsea l FINAL [facility] [facility], [address] [facility] [address] Laz VILLATORO 01/29 CBC w/ auto diff MO #, cells /uL cells/ uL 200.0 950.0 288 Chelsea l FINAL [facility], [address] [place] [phone] [facility] Laz VILLATORO 01/29 CBC w/ auto diff EO #, cells /uL cells/ uL 15.0 500.0 108 Chelsea l FINAL [facility], [address] [place] [phone] [facility] Laz VILLATORO 01/29 CBC w/ auto diff LY % % 48.3 Chelsea l FINAL [facility] [facility], [address] [facility] [address] [facility] Laz VILLATORO 01/29 CBC w/ auto diff MCH pg 27.0 33.0 29.8 Chelsea l FINAL [facility], [address] [facility] [address] [facility] Laz VILLATORO 01/29 CBC w/ auto diff NRBC % /100WB C DNR Chelsea l FINAL [facility], [address] [facility] [address] [facility] Laz VILLATORO 01/29 CBC w/ auto diff Eliane % % 42.2 Chelsea l FINAL [facility], [address] [place] [phone] [facility] Laz VILLATORO Medications Administered Date Name Route [...] Systolic 116 12/05/2023 Intravascular Diastolic 73 12/05/2023 Respiratory Rate 16.00 12/05/2023 Heart Beat 79.00 12/05/2023 Body Temperature 98.80 12/05/2023 Oxygen Saturation 97.00 12/05/2023 Pain Scale 0.00 12/05/2023 Weight 55.80 01/30/2024 Intravascular Systolic 102 01/30/2024 Intravascular Diastolic 58 01/30/2024 Oxygen Saturation 99.00 01/30/2024 Respiratory Rate 16.00 01/30/2024 Heart Beat 97.00 01/30/2024 Body Temperature 98.70 01/30/2024 Pain Scale 0.00 01/30/2024 Weight 56.80
--- OUTSIDE RECORDS SUMMARY | 2024-10-19 01:22 | XMS_ITS | Clinical Summary ---
Author Organization [facility] Address [address] [place] [address] Care Team Providers Care Behavioral Therapy Coordinator Name Role Phone Denver Beatty MD Primary Care Provider [phone] Allergies Active Allergy Reactions Criticality Noted Date [...] (10/17/2020): Added automatically from request for surgery [id number] Hematochezia 10/17/2020 Overview (10/17/2020): Added automatically from request for surgery [id number] Dyspnea on exertion 01/16/2019 Assessment & Plan [...] Team Description 08/19/2024 9:15 AM CDT Telemedicine [facility] [address] [place] [address] [facility] [place] [address] [place] [address] Fanny Hernandez, HARSH Celiac disease/sprue 08/18/2024 Results Follow-Up [facility] [address] [place] [address] [place] [address] [place] [address] Hodan Richardson, ANAND Thyroid Function [place], Vitamin D 25 hydroxy, Folate, Additional followed-up results: 8 08/13/2024 11:15 AM CDT Lab [facility] [address] [place] [phone] Celiac disease/sprue 08/13/2024 9:30 AM CDT Office Visit [facility] [address] [place] [address] 12th [place] [address] [place] [address] Branden Fox MD Celiac disease/sprue (Primary Dx); [...] 09/21/2008,05/01/2004 Surgical History Surgery Date Site/Laterality Comments NM LAPS ABD PRTM&OMENTUM DX W/WO SPEC BR/WA [...] on file 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 Gender Identity Not on file Sexual [...] MD LAB BLOOD ORDERABLES Final Resu lt [facility] [place] [address] * Differential, auto (08/13/2024 10:33 AM CDT) Neutrophil abs 3.37 1.50 - 6.50 K/cumm Imm gran abs 0.02 0.00 - 0.10 K/cumm [facility] Lymphocyte abs 2.30 0.80 - 3.30 K/cumm [facility] Monocyte abs 0.49 0.20 - 0.80 K/cumm [facility] Eosinophil abs 0.31 0.00 - 0.50 K/cumm [facility] Basophil abs 0.04 0.00 - 0.10 K/cumm [facility] Neutrophil pct 51.7 % [facility] Comment: Interpretive Data Percent cell count reference ranges are not reported, since discordance with absolute values may lead to misinterpretation of CBC data. Current Interpretive Data was last revised on 2017. Imm gran pct 0.3 % [facility] Comment: Interpretive Data Percent cell count reference ranges are not reported, since discordance with absolute values may lead to misinterpretation of CBC data. Current Interpretive Data was last revised on 2017. Lymphocyte pct 35.2 % [facility] Comment: Interpretive Data Percent cell count reference ranges are not reported, since discordance with absolute values may lead to misinterpretation of CBC data. Current Interpretive Data was last revised on 2017. Monocyte pct 7.5 % [facility] Comment: Interpretive Data Percent cell count reference ranges are not reported, since discordance with absolute values may lead to misinterpretation of CBC data. Current Interpretive Data was last revised on 2017. Eosinophil pct 4.7 % [facility] Comment: Interpretive Data Percent cell count reference ranges are not reported, since discordance with absolute values may lead to misinterpretation of CBC data. Current Interpretive Data was last revised on 2017. Basophil pct 0.6 % [facility] Comment: Interpretive Data Percent cell count reference ranges are not reported, since discordance with absolute values may lead to misinterpretation of CBC data. Current Interpretive Data was last revised on 2017. Blood 08/13/2024 10:3 3 AM CDT 08/13/2024 10:55 AM CDT Branden Fox MD LAB BLOOD ORDERABLES Final Resu lt Performing Organization Address City/[facility]/ZIP Co de Phone Number [facility] Department [place] [address] * Thyroid Function [place] (08/13/2024 10:33 AM CDT) Pathologist [facility] TSH 1.83 0.30 - 4.20 mcIUnit/mL Blood 08/13/2024 10:3 3 AM CDT 08/13/2024 10:55 AM CDT Branden Fox MD LAB BLOOD ORDERABLES Final Resu lt Performing Organization Address City/[facility]/ZIP Co de Phone Number [facility] [place] [address] * CBC with auto differential (08/13/2024 10:33 AM CDT) Pathologist [facility] WBC 6.53 3.80 - 9.90 K/cumm Hgb 12.8 11.9 - 15.5 g/dL [facility] Hct 37.4 35.6 - 45.5 % [facility] Plt 268 150 - 400 K/cumm [facility] MPV 9.2 9.1 - 12.3 fL [facility] RBC 4.30 3.90 - 5.20 M/cumm [facility] MCV 87.0 81.3 - 96.4 fL [facility] MCH 29.8 27.1 - 33.3 pg [facility] MCHC 34.2 32.3 - 35.7 g/dL [facility] RDW CV 12.0 11.1 - 14.9 % [facility] RDW SD 38.5 35.7 - 48.1 fL [facility] NRBC abs 0.00 0.00 - 0.01 K/cumm [facility] Blood 08/13/2024 10:3 3 AM CDT 08/13/2024 10:55 AM CDT Branden Fox MD LAB BLOOD ORDERABLES Final Resu lt Performing Organization Address [facility] Co de Phone Number [facility] [place] [address] * Gliadin antibody, IgG (08/13/2024 10:33 AM CDT) Anti-gliadin, IgG 14.2 <=14.9 units/mL Comment: Interpretive data Negative: <15 units/mL Positive: > or equal to 15 units/mL Current interpretive data was last revised on 2016. Blood 08/13/2024 10:3 3 AM CDT 08/13/2024 10:55 AM CDT Branden Fox MD LAB BLOOD ORDERABLES Final Resu lt Performing Organization Address [facility] Co de Phone Number [facility] Department of [facility] [place] [address] * (ABNORMAL) Tissue transglutaminase IgA (TGG-IgA Ab) (08/13/2024 10:33 AM CDT) TTG ab, IgA 22.5(H) <=14.9 units/mL Comment: Interpretive data Negative: <15 units/mL Positive: > or equal to 15 units/mL Current interpretive data was last revised on 2016. Blood 08/13/2024 10:3 3 AM CDT 08/13/2024 10:55 AM CDT us Branden Fox MD LAB BLOOD ORDERABLES Final Resu lt Performing Organization Address City/[facility]/ZIP Co de Phone Number [facility] [place] [address] * Vitamin D 25 hydroxy (08/13/2024 10:33 AM CDT) Vitamin D 25-OH 40 30 - 80 ng/mL Blood 08/13/2024 10:3 3 AM CDT 08/13/2024 10:55 AM CDT us Branden Fox MD LAB BLOOD ORDERABLES Final Resu lt Performing Organization Address [facility] Co de Phone Number [facility] [place] [address] * Folate (08/13/2024 10:33 AM CDT) Folic acid 13.6 >=5.0 ng/mL Blood 08/13/2024 10:3 3 AM CDT 08/13/2024 10:55 AM CDT us Branden Fox MD LAB BLOOD ORDERABLES Final Resu lt Performing Organization Address City/[facility]/ZIP Co de Phone Number [facility] Department [place] [address] * Ferritin (08/13/2024 10:33 AM CDT) Ferritin 52 13 - 150 ng/mL Blood 08/13/2024 10:3 3 AM CDT 08/13/2024 10:55 AM CDT Branden Fox MD LAB BLOOD ORDERABLES Final Resu lt Performing Organization Address City/[facility]/ZIP Co de Phone Number [facility] Department [place] [address] * Vitamin B12 (08/13/2024 10:33 AM CDT) Pathologist [facility] Vitamin B12 944 230 - 1,250 pg/mL Blood 08/13/2024 10:3 3 AM CDT 08/13/2024 10:55 AM CDT us Branden Fox MD LAB BLOOD ORDERABLES Final Resu lt [facility] Department [place] [address] * Comprehensive metabolic panel (08/13/2024 10:33 AM CDT) [facility] Sodium 138 135 - 145 mmol/L Potassium, pl 4.0 3.3 - 4.9 mmol/L [facility] Chloride 105 97 - 110 mmol/L [facility] CO2 25 22 - 32 mmol/L [facility] Anion gap 8 2 - 15 mmol/L [facility] BUN 11 6 - 25 mg/dL [facility] Creatinine 0.78 0.60 - 1.10 mg/dL [facility] Glucose 86 70 - 199 mg/dL [facility] Comment: Interpretive Data Fasting glucose >/= 126 [...] 2022. Calcium 9.7 8.5 - 10.3 mg/dL [facility] Bilirubin, total 0.7 0.1 - 1.2 mg/dL [facility] Protein, pl 7.0 6.5 - 8.5 g/dL [facility] Albumin 4.8 3.5 - 5.0 g/dL [facility] Alk phos 51 40 - 130 Units/L [facility] ALT 12 7 - 45 Units/L [facility] AST 21 10 - 45 Units/L [facility] Blood 08/13/2024 10:3 3 AM CDT 08/13/2024 10:55 AM CDT us Branden Fox MD LAB BLOOD ORDERABLES Final Resu lt [facility] [place] [address] from Last 3 Months Insurance [employer] [place] [employer] [facility] CHOICE PLUS [facility] HMO/PPO Address: [address] [address] [place], [place] [address] [place] [address] Advance Directives For more information, please contact: [phone] * Full Code (Latest Code Status on File) Date Activated Date Inactivated Comments 08/22/2023 11:50 PM 08/23/2023 9:20 PM Care Teams Behavioral Therapy Coordinator Relationship Specialty Start Date End Date Denver Beatty MD [address] [place] [id number] PCP - General Family Medicine 08/13/23
--- OUTSIDE RECORDS SUMMARY | 2024-10-19 01:22 | XMS_ITS | CCD ---
Author Name Interface, [email or web address] Address [address] [place] [address] Organization [employer] Address [address] [place] [address] Allergies and Adverse Reactions Medication/Group Name Reaction Severity Date adhesive 01/30/2024 amoxicillin 01/30/2024 Care Plan Date Type Value 01/30/2024 APPOINTMENT Entyvio (Acuity 2) 12/05/2023 APPOINTMENT Entyvio (Acuity 2) 12/05/2023 LABORDER CMP 12/05/2023 LABORDER CMP 12/05/2023 LABORDER ESR 12/05/2023 LABORDER CBC 12/05/2023 LABORDER CBC 01/30/2024 LABORDER C-reactive prote in (CRP), cardiac 01/30/2024 LABORDER Vitamin D, 25-hy droxy 01/30/2024 LABORDER Iron, TIBC, Ferr itin panel 01/30/2024 LABORDER GGT 01/30/2024 LABORDER CMP 01/30/2024 LABORDER HELD: ESR 01/30/2024 LABORDER CBC 01/30/2024 LABORDER CBC 01/30/2024 LABORDER CMP 03/12/2024 LABORDER CBC 03/12/2024 LABORDER CMP 03/12/2024 LABORDER CBC 03/12/2024 LABORDER CMP 03/12/2024 LABORDER ESR Reason for Visit Entyvio (Acuity 2) Encounters Date Name 01/30/2024 Inflammatory bowel d isease (disorder) Diagnostic Results Date Type Test Units Lower Limit Upper Limit Result Flag Comments Status Ordered By Specimen Source Lab Address 01/29 Clini georgina PDF Repor t [id number] See [employer] d FINAL 01/29 Sedim entat ion rate panel Sedim entat ion rate, Weste rgren mm/h TNP TEST NOT PERFORMED The specimen exceeds stability forthe test requested . FINAL [employer] [facility], [id number] [address] [place] [address] Terese- andi Rankin Laz VILLATORO 01/29 C-jane ctive prote in panel C-jane ctive prote in, quant , mg/L mg/L <3.0 Chelsea l FINAL [facility], [address] [address] [place] [address] Terese- andi Rankin Laz VILLATORO 01/29 Vitam in D, 25-OH , D2 ng/mL <1.0 This test was developed and its analytica l performan cecharact eristics have been determine d by [employer]. It has not been cleared or approved by theA. This assay has been validated pursuant to the [facility] and is used for clinical purposes. Your request to have a duplicate copy faxed has been acknowled ged. Queued to: [phone] FINAL [facility], [facility], [address] [place] [address] Mushtaq Flores i PhD, [facility] 01/29 Vitam in D, 25-OH , D3 ng/mL 38.0 This test was developed and its analytica l performan cecharact eristics have been determine d by [employer]. It has not been cleared or approved by theA. This assay has been validated pursuant to the [facility] and is used for clinical purposes. FINAL [employer] [address] [facility], [address] [facility] [place] [address] Mushtaq Flores i PhD, [facility] 01/29 Vitam in D, 25-hy droxy ng/mL 38.0 This test was developed and its analytica l performan cecharact eristics have been determine d by [employer] [facility]. It has not been cleared or [...] Therapy is based on measureme nt of Sekmb19-A HD, with levels <20 ng/mL indicativ e [...] = 30 ng/mL. FINAL Kelsi thomas [facility] [address] [place] [address], [address] [place] [address] Mushtaq Flores i PhD, DAB 01/29 GGT panel GGT U/L 3.0 40.0 7 Chelsea l FINAL [facility] [facility], [facility] [place] [address] Terese-Lie u T Laz VILLATORO 01/29 CMP ALT/S GPT U/L 6.0 29.0 12 Chelsea l FINAL [facility] [facility], [facility] [address] Terese-Lie u T Laz VILLATOR[place] 01/29 CMP A/G ratio (calc) 1.0 2.5 2.1 Chelsea l FINAL [facility], Brandon [facility] [place] 52 Terese-Lie u T Vo 01/29 CMP Gluco se mg/dL 65.0 139.0 78 Chelsea l Non-fasti ng reference interval FINAL [facility] [facility], [facility] [place] 52 Terese-Lie u T Vo 01/29 CMP Globu abrahan g/dL(c alc) 1.9 3.7 2.1 Chelsea l [facility]AL [facility] [facility], [facility] [place] 52 Terese-Lie u T Vo 01/29 CMP Total prote in g/dL 6.1 8.1 6.5 Chelsea l FINAL [facility] [facility], [facility] [place] 52 Treese-Lie u T Vo 01/29 CMP AST/S GOT U/L 10.0 30.0 16 Chelsea l FINAL [facility] [facility], [facility] [place] 52 Terese-Lie u T Vo 01/29 CMP Bilir ubin, total mg/dL 0.2 1.2 0.4 [place] l FINAL [facility] [facility], [facility] [place] 52 Terese-Lie u T Vo 01/29 CMP Sodiu m mmol/L 135.0 146.0 138 [place] l [facility]AL [facility], [facility] [place] 52 Terese-Lie u T Vo 01/29 CMP Alkal ine phosp hatas e U/L 31.0 125.0 37 Chelsea l FINAL [facility], [facility] [place] 52 Terese-Lie u T Vo 01/29 CMP Calci um mg/dL 8.6 10.2 9.4 [place] l FINAL [facility] [facility], [facility] [place] 52 Terese-Lie u T Vo 01/29 CMP CO2 mmol/L 20.0 32.0 25 Chelsea l [facility]AL [facility], [facility] [place] 52 Terese-Lie u T Vo 01/29 CMP EGFR mL/min /1.73m 2 90 Chelsea l FINAL [facility] [facility], [facility] [place] 52 Terese-Lie u T Vo 01/29 CMP Chlor marcia mmol/L 98.0 110.0 104 [place] l FINAL [facility] [facility], [facility] [place] 52 Terese-Lie u T Vo 01/29 CMP BUN mg/dL 7.0 25.0 12 [place] l FINAL [facility] [facility], [facility] [place] 52 Terese-Lie u T Vo 01/29 CMP Creat inine mg/dL 0.5 0.96 0.93 [place] l FINAL [facility] [facility], [facility] [place] 52 Terese-Lie u T Vo 01/29 CMP Album in g/dL 3.6 5.1 4.4 [place] l FINAL [facility] [facility], [facility] [place] 52 Terese-Lie u T Vo 01/29 CMP BUN/C reati nine ratio (calc) 6.0 22.0 SEE NOTE: Not Reported: BUN and Creatinin e are within reference range. FINAL [facility], [facility] [place] 52 Terese-Lie u T Vo 01/29 CMP Potas sium mmol/L 3.5 5.3 4.2 Chelsea l FINAL [facility] [facility], [facility] [place] 52 Terese-Lie u T Vo 01/29 Iron, TIBC, Irvin tin panel Irvin tin ng/mL 16.0 154.0 10 Low FINAL [facility] [facility], [facility] 52 - u T Vo 01/29 Iron, TIBC, Irvin tin panel Iron, % satur ation %(calc ) 16.0 45.0 34 Chelsea l FINAL [facility], [facility] 52 u T Laz VILLATORO 01/29 Iron, TIBC, Irvin tin panel Iron mcg/dL 40.0 190.0 119 [place] l FINAL [facility] [facility], [facility] 52 u T Vo 01/29 Iron, TIBC, Irvin tin panel TIBC mcg/dL (calc) 250.0 450.0 345 [place] l FINAL [facility] [facility], [facility] 52 u T Vo 01/29 CBC w/ auto diff MCV fL 80.0 100.0 93.9 [place] l FINAL [facility] [facility], [facility] 52 u T Vo 01/29 CBC w/ auto diff Neutr ophil band, Ab, cells /uL cells/ uL 0.0 750.0 DNR [place] l FINAL [facility] [facility], [facility] 52 u T Laz VILLATORO 01/29 CBC w/ auto diff MO % % 6.4 [place] l [facility]AL [facility] [facility], [facility] 52 u T Vo 01/29 CBC w/ auto diff Metam yeloc yte % % DNR [place] l FINAL [facility] [facility], [facility] 52 - u T Vo 01/29 CBC w/ auto diff Metam yeloc ytes, absol menominee cells/ uL DNR [place] l FINAL [facility] [facility], [address] [facility] [place] [address] Terese-Lie u T Vo 01/29 CBC w/ auto diff ELIANE #, cells /uL cells/ uL 1500.0 7800.0 1899 Chelsea l FINAL [facility] [facility], [facility] [place] [address] Terese-Lie u T Vo 01/29 CBC w/ auto diff EO % % 2.4 [place] l [facility]AL [facility] [facility], [facility] [address] Terese-Lie u T Vo 01/29 CBC w/ auto diff RBC Millio n/uL 3.8 5.1 4.29 [place] l FINAL [facility], [facility] [place] [address] Terese-Lie u T Vo 01/29 CBC w/ auto diff MPV fL 7.5 12.5 9.7 [place] l FINAL [facility] [facility], [facility] [address] 52 Terese-Lie u T Vo 01/29 CBC w/ auto diff BA % % 0.7 [place] l [facility]AL [facility] [facility], [facility] [address] 52 Terese-Lie u T Vo 01/29 CBC w/ auto diff Promy elocy te % % DNR [place] l FINAL [facility], [place] [phone] 52 Terese-Lie u T Vo 01/29 CBC w/ auto diff BA #, cells /uL cells/ uL 0.0 200.0 32 [place] l FINAL [facility] [facility], [facility] [address] Terese-Lie u T Vo 01/29 CBC w/ auto diff Band, % % DNR [place] l FINAL [facility], [place] [phone] 52 Terese-Lie u T Vo 01/29 CBC w/ auto diff HGB g/dL 11.7 15.5 12.8 [place] l FINAL [facility], [place] 52 01/29 CBC w/ auto diff Myelo cyte % % DNR [place] l [facility], [facility] 52 01/29 CBC w/ auto diff NRBC, absol menominee, cells /uL cells/ uL DNR [place] l FINAL [facility] [facility], [facility] [place] 52 01/29 CBC w/ auto diff MCHC g/dL 32.0 36.0 31.8 Low For adults, a slight decrease in the calculate d MCHCvalue (in the range of 30 to 32 g/dL) is most likelynot clinicall y significa nt; however, it should beinterpr eted with caution in correlati on with otherred cell parameter s and the patient's clinicalc ondition. FINAL [facility] [facility], [facility] 52 01/29 CBC w/ auto diff HCT % 35.0 45.0 40.3 Chelsea l FINAL [facility] [facility], [facility] [place] 52 01/29 CBC w/ auto diff React john lymph ocyte , % % 0.0 10.0 DNR [place] l FINAL [facility] [facility], [facility] [place] 52 01/29 CBC w/ auto diff Blast s, absol menominee cells/ uL DNR [place] l FINAL [facility] [facility], [facility] [place] 52 Laz VILLATORO 01/29 CBC w/ auto diff Myelo cytes , absol menominee cells/ uL DNR [place] l FINAL [facility] [facility], [address] [facility] [place] [address] Laz VILLATORO 01/29 CBC w/ auto diff Promy elocy te, absol menominee, cells /uL cells/ uL DNR [place] l FINAL [facility] [facility], [address] [facility] 52 Laz VILLATORO 01/29 CBC w/ auto diff WBC Thousa nd/uL 3.8 10.8 4.5 Chelsea l FINAL [facility] [facility], [facility] 52 Laz VILLATORO 01/29 CBC w/ auto diff PLT Thousa nd/uL 140.0 400.0 297 [place] l FINAL [facility] [facility], [address] [facility] 52 Laz VILLATORO 01/29 CBC w/ auto diff CBC Comme nts DNR [place] l FINAL [facility] [facility], [facility] [address] Laz VILLATORO 01/29 CBC w/ auto diff LY #, cells /uL cells/ uL 850.0 3900.0 2174 [place] l FINAL [facility], [facility] [address] Laz VILLATORO 01/29 CBC w/ auto diff Blast s % % DNR [place] l FINAL [facility] [facility], [facility] [address] Laz VILLATORO 01/29 CBC w/ auto diff RDW % 11.0 15.0 12.1 [place] l FINAL [facility], [address] [facility] [address] Laz VILLATORO 01/29 CBC w/ auto diff MO #, cells /uL cells/ uL 200.0 950.0 288 [place] l FINAL [facility] [facility], [address] [place] [phone] [facility] Laz VILLATORO 01/29 CBC w/ auto diff EO #, cells /uL cells/ uL 15.0 500.0 108 [place] l FINAL [facility] [facility], [address] [place] [phone] [facility] Laz VILLATORO 01/29 CBC w/ auto diff LY % % 48.3 [place] l [facility]AL [facility] [facility], [address] [facility] [address] [facility] Laz VILLATORO 01/29 CBC w/ auto diff MCH pg 27.0 33.0 29.8 [place] l FINAL [facility] [facility], [address] [facility] [address] [facility] Laz VILLATORO 01/29 CBC w/ auto diff NRBC % /100WB C DNR [place] l [facility]AL [facility] [facility], [address] [facility] [address] [facility] Laz VILLATORO 01/29 CBC w/ auto diff Eliane % % 42.2 [place] l FINAL [facility] [facility], [address] [place] [phone] [facility] Laz VILLATORO Medications Administered Date Name Route [...]
--- NOTE | 2024-10-19 07:25 | WPDHPUPDATE1 ---
History and Physical Update Update Date/Time: 10/19/24 07:25 History and Physical has been reviewed, including an updated exam of the patient. There are NO changes in the patient's condition. Risks, benefits, and alternatives have been discussed and questions answered. Patient agrees to proceed with procedure.
--- NOTE | 2024-10-19 07:35 | P.PNAN_ITS ---
Anes - Initial Pre Proc Eval Procedure: Operation Date: 10/19/24 08:00 Proposed Procedures p Right Sided Myringotomy with Tube Insertion - Feng Griffith MD Date/Time: 10/19/24 07:35 Surgeon: Feng Griffith MD Pre Op Diagnosis: otitis media,eustach tube disorder,chronic sinusit Patient Data Age: 19 Gender: F Height: 1.7 m Weight: 56.7 kg Allergies Allergy/AdvReac Type Severity Reaction Status Date / Time amoxicillin Allergy Intermediate Hives / Verified 10/16/24 08:11 Red Face Penicillins Allergy Mild hives Verified 10/16/24 08:11 adhesive tape AdvReac Intermediate BLISTERS Verified 10/16/24 08:11 Home Medications ?Medication ?Instructions ?Recorded ?Confirmed ?Type spironolactone 50 mg tablet 50 mg PO TID 06/20/21 10/16/24 History linaclotide 72 mcg capsule 72 mcg PO DAILY 04/09/23 10/16/24 History (Linzess) L norgest/E estradiol-E estrad 0.1 1 tablet PO DAILY #182 ea 09/02/24 10/16/24 Rx mg-20 mcg (84)/10 mcg (7) tabs,3mos fluticasone propionate 50 2 spray intranasal BID #16 mL 09/30/24 10/16/24 Rx mcg/actuation nasal spray,suspension (Flonase Allergy Relief) vedolizumab 108 mg/0.68 mL mg subcut 10/16/24 10/16/24 History subcutaneous pen injector (Entyvio Pen) Patient hx anesthesia problems: none Family hx anesthesia problems: none Results Review: All pre-operative results and documents have been reviewed as part of the pre- operative evaluation. [facility] Past Medical History Medical History Crohn's colitis Celiac disease Ulcerative (chronic) enterocolitis IBS (irritable bowel syndrome) Asthma Ear infection Surgical History Surgical History History of removal of ovarian cyst History of tympanoplasty History of placement of ear tubes Family History Family History Mother Hypertension Other Heart disease Social History Social History Social History: Caffeine - Occasionally Smoking status: Never smoker Alcohol intake: current Alcohol use details: 1-4 per week Substance use: never Substance use type: does not use Do You Feel Safe in your Home?: Yes Lack of Transportation: No Lack of Food: Never True Current Housing: I Have Housing Concerned About Future Housing: No Difficulty Paying Gas/Electric Bills: No Difficulty Paying for Meds: No Currently Unemployed: No Education: High School Diploma/GED Difficulty w/ Childcare or Family Care: No Living arrangements: with family Occupation/Education: student Gender identity (if verbalized by the patient): Female Spiritual care concerns: No Anes - Eval Final PreProcedure Day of Procedure 10/19/24 07:35 Patient weight: normal Heart: regular rate and rhythm Lungs: clear to auscultation Airway: Mallampati scale class II Neurological: alert and oriented Last oral intake: >/= 8 hours ASA classification: II Emergent: no Anesthetic plan: proceed Anesthesia type and monitoring: general GIVS and standard monitoring Results Review: All pre-operative results and documents have been reviewed as part of the pre- operative evaluation. Informed Consent: The patient's anesthetic plan and its attendant risks and benefits were discussed with the patient/family/POA. Questions were solicited and answers provided to the satisfaction of the patient/family/POA.
[2024-10-19 08:02] LABS: BEDSIDEPREGUCG Negative (Negative)
[2024-10-19] MEDS: LACTATED RINGERS 1,000 ML 30 ML IV CONT (08:10)
--- NOTE | 2024-10-19 08:23 | W.PM.PROC2 ---
Procedure Note - Detailed Date of Procedure 10/19/24 Pre-op Diagnosis otitis media,eustach tube disorder,chronic sinusit Post-op Diagnosis Same Procedure Performed Right-sided myringotomy with tube insertion Surgeon Feng Griffith MD Anesthesia General Indications See above Findings Fair amount of otosclerosis tube placed anterior-inferior quadrant collar-button tube. Minimal bleeding if any. Description of Procedure Patient identified consent verified the preoperative holding area. Patient brought to the operating. Time-out performed. General anesthesia induced mask ventilation maintained. Patient prepped draped position procedure confirmed. Right-sided viewed myringotomy made anterior to otosclerosis 3 very small portion of otosclerosis collar-button tube placed patient tolerated the procedure well aerated middle ear no complications. Drops placed. I performed all dictated portions of procedure. Care the patient given Anesthesiology. Patient taken to PACU. No immediate complications. Estimated Blood Loss 1 Drains No Packing No Pathology None sent Complications No immediate complications Condition Stable Disposition PACU [facility] Billing Surgery - Charge Forward: Surgery Billing
[2024-10-19] MEDS: fentaNYL CITRATE INJ (*CRX) 100 MCG/2 ML VIAL 25 MCG IV PUSH ×4 (08:55→10:20)
[2024-10-19] MEDS: oxyCODONE HCL (*CRX) 5 MG TAB IR PO (09:23)
[2024-10-19] MEDS: KETOROLAC 15 MG/ML VIAL (*BKC) IV PUSH (09:44)
== END 2024-10-19 10:48 | disposition home or self-care (01) ==
PROVIDERS: Anesthesiology; PCP Family Medicine; Visit Provider Otolaryngology
PROC: (CPT 69436; principal; 2024-10-19 08:00)
DX: H66.91 Otitis media, unspecified, right ear (principal); H69.91 Unspecified Eustachian tube disorder, right ear; J32.9 Chronic sinusitis, unspecified; H80.91 Unspecified otosclerosis, right ear
CPT/HCPCS: 69436; A9270; J1885; J2704; J3010; J7120